=== PATIENT | female | born 1990 | race Caucasian/White ===

== ENCOUNTER 2018-03-29 11:36 | Emergency (ER) | payer MEDICAID, SELFPAY ==
[2018-03-29 11:38] VITALS: BP 112/65; PULSE 95; RESP 17; TEMP 37.6; O2SAT 100; BMI 32.8
[2018-03-29 13:21] LABS: Absolute Lymphocyte Count 1.68 X10^3/ul (0.83-4.51); Absolute Neutrophil Count 11.4 X10^3/uL (2.0-7.7); Basophil# 0.02 X10^3/uL; Basophil% 0.1 % (0-1); Eosinophil# 0.03 X10^3/uL; Eosinophils% 0.2 % (0-5); Hemoglobin 12.3 g/dl (12.0-15.0); Lymphocyte # 1.68 X10^3/ul (4.0); Lymphocyte % 11.6 % (19-41); Mean Corp Hgb Conc 32.4 g/gl (32-36); Mean Corpuscular Volume 92.7 fL (81-99); Mean Platelet Vol. 9.4 fl (6.2-12.0); Monocyte# 1.26 X10^3/uL; Monocyte% 8.7 % (0-10); Neutrophil # 11.43 X10^3/uL (2.7-7.7); Neutrophil % 79.3 % (47-70); Platelet Count 314 K/mm3 (150-450); RBC Distribution Width CV 12.1 % (11.6-14.6); RBC Distribution Width SD 41.2 fl (35.1-43.9); White Blood Count 14.4 K/mm3 (4.4-11.0)
[2018-03-29 13:22] LABS: POSITIVE COUNT NO; POSITIVE DIFFERENTIAL NO; POSITIVE MORPHOLOGY NO
[2018-03-29] MEDS: Ketorolac 30 MG/ML Syringe IV (13:31)
[2018-03-29] MEDS: 0.9% Normal Saline 1,000 ML 1000 ML IV (13:31)
[2018-03-29 13:36] LABS: ALB/GLOB Ratio 0.7 RATIO (0.9-2.4); AST(SGOT) 21 U/L (15-37); Alanine Aminotransfer ALT/SGPT 36 U/L (13-56); Albumin, Serum 3.2 g/dL (3.2-5.0); Alkaline Phosphatase 81 U/L (45-117); Anion Gap 7 (5-15); BUN 10 mg/dL (7-18); BUN/Creat Ratio 12.4 RATIO (10-20); Calcium,Total 8.7 mg/dL (8.5-10.1); Chloride 101 mmol/L (98-107); EST Glomerular Filtration Rate 89 mL/min (>60); Est Glom Filt Rate - Afr Amer 108 mL/min (>60); Estimated Creatinine Clearance 103.73 ml/min; Globulin 4.6 g/dL (2.2-4.2); Glucose 100 mg/dL (74-106); Potassium 4.3 mmol/L (3.5-5.1); Protein, Total 7.8 g/dL (6.4-8.2); Sodium Level 135 mmol/L (136-145)
[2018-03-29 13:45] LABS: Internal QC Validated? YES +Cl - CLEAR BKGD
[2018-03-29 13:46] LABS: Monotest Negative (Negative); Record Kit Lot#, Mono 13171517
--- NOTE | 2018-03-29 13:55 | RAD_ITS ---
STUDY: X-RAY CHEST REASON FOR EXAM: Female, 28 years old. Headaches. Nausea and chills. TECHNIQUE: PA and lateral views of the chest. COMPARISON: None. FINDINGS: The lungs are clear and expanded. There is no demonstrated pleural abnormality. Normal size heart. Normal mediastinum and praveen. Normal visualized pulmonary arteries. Normal visualized aortic arch and descending thoracic aorta. Normal visualized thoracic spine. Normal visualized ribs, clavicles, and shoulders. There is no demonstrated abnormality of the visualized soft tissue structures of the upper abdomen. RAD/Chest PA and Lateral IMPRESSION: Normal x-ray examination of the chest. Electronically Signed: Quirino Urbina MD at 14:28 EST Tel [phone], Service support ,
[2018-03-29 15:19] LABS: Color, Urine Yellow (Yellow); Glucose, Dipstick Normal (Normal); Ketone-Dipstick Negative (Negative); Leukocyte Esterase-Dipstick 500 /ul (Negative); Nitrite-Dipstick Positive (Negative); Occult Blood-Urine 50 /ul (Negative); Protein-Dipstick 30 mg/dl (Negative); Urine Bilirubin Dipstick Negative (Negative); Urine Clarity Cloudy (Clear); Urine Urobilinogen 1 mg/dl (Normal); Urine pH 6.5 (5.0 - 8.0)
[2018-03-29 15:42] LABS: Red Blood Cells-Urine 0-5 SEEN /hpf (0-5); Squamous Epithelial Cells - UA 0-5 SEEN /hpf (5-10); White Blood Cells >100 SEEN /hpf (0-5)
[2018-03-29 15:43] LABS: Amorphous Sediment 2+; Bacteria 4+ /hpf (None Seen); Mucous, Urine 1+ /hpf (<or=2+)
[2018-03-29 15:53] VITALS: BP 132/55; PULSE 80; RESP 16; TEMP 37.1; O2SAT 98
--- NOTE | 2018-03-29 16:06 | ED.VISSUMM ---
- ER Visit Summary Date of Service: 03/29/18 Chief Complaint: I am sick History of Present Illness: The patient is a 28 F who states for the past 1-1/2-1-week she has been feeling ill. States he began with a cough and runny nose as well as a sore throat. She then began to have a headache generalized fatigue and decreased p.o. She has had some vomiting no diarrhea. She notes generalized myalgias. She notes dysuria hematuria and urinary frequency. She notes chills but no definitive fever. She notes her headache is by temporal that is worse with a cough. She notes some light sensitivity. She notes a history of endometriosis that led to hysterectomy. She also notes a history of asthma. Initial history though the patient told me she had no significant medical problems and takes no medicines. Physical Examination: Temperature 99.7 blood pressure 112/65 heart rate of 95 respirations are 17 pulse ox 100% room air Gen: Well-nourished well-developed Head: Normocephalic atraumatic Eyes: Perrl EOMI no papilledema ENT: TMs clear no rhinorrhea moist mucous membranes Neck: Supple no lymphadenopathy no JVD nontender no meningitic signs CVS: Regular rate rhythm no murmurs normal S1-S2 Respiratory: No distress mild expiratory wheeze that improves with cough chest nontender Abdomen: Soft nontender nondistended normal bowel sounds no masses Back: Left CVA tenderness Extremity: Nontender no edema Skin: Normal color no rash Neuro: alert orientated ?3 CN II-XII intact normal strength sensation reflexes gait cerebellar Psych: Normal affect normal mood Test Results: White count elevated 14.4. Urinalysis is grossly contaminated with greater than 100 white cells 4+ bacteria 0-5 epithelial cells positive nitrate and leukocyte esterase. Monospot was negative. Urine culture was sent. Chest x-ray shows no obvious infiltrate. Emergency Department Course and Treatment: Patient received Toradol and IV fluids. Patient had no vomiting here. I believe the patient most likely had a URI and somewhere along the line developed UTI and now has pyelonephritis. I am going to write her for Cipro as well as Phenergan and albuterol MDI. She is instructed on hydrating. Also write for a few [place]. She is to follow-up with primary care return if worsening or concerns. Patient is comfortable with this plan. Impression: 1. Acute pyelonephritis 2. Viral respiratory illness This note was generated with [employer] dictation software. It may contain incorrect words, spelling, and punctuation that were not noted in review of the chart prior to signing ED Disposition - Plan for ED Patient: Disposition: Home or Assisted Living Chief Complaint: General Illness Prescriptions: Albuterol Inhaler [Ventolin Hfa] 2 puff INHALATION Q4H PRN PRN #1 inhaler PRN Reason: Wheezing Hydrocodone Bitart/Apap 5-325 [[place] 5MG-325MG] 1 tab PO Q6H PRN PRN 3 Days #10 tab PRN Reason: Pain proMETHazine tablet [Phenergan] 25 mg PO Q6H PRN PRN #10 tab PRN Reason: Nausea Ciprofloxacin [Cipro] 500 mg PO BID #20 tab Referrals: Elana Keenan MD [STAFF PHYSICIAN] - 3-5 Days if not improving
[2018-03-29 16:38] VITALS: PULSE 79; RESP 14; O2SAT 98
== END 2018-03-29 16:38 | disposition home or self-care (01) ==
PROVIDERS: Emergency Provider Emergency Medicine
DX: N10 Acute pyelonephritis (principal); B34.9 Viral infection, unspecified; J45.909 Unspecified asthma, uncomplicated; Z90.710 Acquired absence of both cervix and uterus; Z72.0 Tobacco use
CPT/HCPCS: 71046; 80053; 81001; 85025; 86308; 87086; 87088; 87186; 99283; J7030; A4216

== ENCOUNTER 2020-01-18 00:10 | Inpatient (IN) | payer MEDICAID, SELFPAY ==
[2020-01-18] VITALS (11 sets, daily range): BP systolic 98–122; BP diastolic 55–88; PULSE 63–97; RESP 16–18; TEMP 36.6–36.9; O2SAT 94–100; BMI 29.9; BMI 29.3; BMI 29.4
[2020-01-18 01:12] LABS: Internal QC Validated? YES +Cl - CLEAR BKGD; Pregnancy, Serum, hCG Quali. NEGATIVE Negative
[2020-01-18 01:21] LABS: Amphetamine Urine VISTA POSITIVE (<1000 ng/mL); Barbiturate Urine VISTA NEGATIVE (< 200 ng/mL); Benzodiazepine Urine VISTA NEGATIVE (< 200 ng/mL); Cocaine Urine VISTA NEGATIVE (< 300 ng/mL); Ecstacy Urine VISTA NEGATIVE (< 500 ng/mL); Methadone Urine VISTA NEGATIVE (< 300 ng/mL); PCP Urine VISTA NEGATIVE (< 25 ng/mL); THC Urine VISTA NEGATIVE (< 50 ng/mL); Vista UDS pH Range 5
[2020-01-18 01:21] LABS: ALB/GLOB Ratio 0.6 RATIO (0.9-2.4); AST(SGOT) 18 U/L (15-37); Alanine Aminotransfer ALT/SGPT 43 U/L (13-56); Albumin, Serum 2.9 g/dL (3.2-5.0); Alkaline Phosphatase 96 U/L (45-117); Anion Gap 4 (5-15); BUN 8 mg/dL (7-18); BUN/Creat Ratio 11.2 RATIO (10-20); Calcium,Total 8.5 mg/dL (8.5-10.1); Chloride 106 mmol/L (98-107); Creatinine, Serum 0.71 mg/dL (0.55-1.02); EST Glomerular Filtration Rate 101 mL/min (>60); Est Glom Filt Rate - Afr Amer 122 mL/min (>60); Estimated Creatinine Clearance 110.62 ml/min; Globulin 4.9 g/dL (2.2-4.2); Glucose 89 mg/dL (74-106); Protein, Total 7.8 g/dL (6.4-8.2); Sodium Level 136 mmol/L (136-145)
--- NOTE | 2020-01-18 01:36 | ED.VISSUMM ---
- ER Visit Summary Date of Service: 01/18/20 Chief Complaint: Requesting detox History of Present Illness: The patient is a 30 F presenting requesting detox from heroin. She states she last used 2 hours ago. She last had detox 6 months ago. She states she has been using $20-$40 per day of heroin. She injects in her arms. She denies current symptoms. Denies alcohol use. Denies other drug use. Physical Examination: Vitals are stable. Patient is afebrile. Alert no acute distress. HEENT exam is unremarkable. Neck is supple. Lungs are clear and equal bilaterally. Heart is regular rate and rhythm. Abdomen is soft nontender nondistended. Extremities are unremarkable. Skin is warm and dry. No focal neurologic deficit. Remainder of exam is unremarkable. Emergency Department Course and Treatment: Chemistry panel unremarkable. Tox positive for amphetamine, alcohol negative. hCG negative. Discussed with the hospitalist for admission. Disposition: Admission Impression: Heroin dependence This note was generated with [email or web address] dictation software. It may contain incorrect words, spelling, and punctuation that were not noted in review of the chart prior to signing ED Disposition - Plan for ED Patient: Referrals: Deisy Montilla NP, [facility] [Primary Care Provider] -
--- NOTE | 2020-01-18 01:39 | HP.PCM_ITS ---
Problem List (1) Opiate dependence Status: Acute (2) Desire for detoxification Status: Acute History of Present Illness Date of Admission: 01/18/20 Chief Complaint: Desire for detoxification The patient is a 30 year old F with a significant history of asthma; anxiety disorder; and methamphetamine abuse and heroin abuse who presented to the ED for detoxification from illicit drugs. Actively patient uses heroin. She uses about a quarter of a gram per day. It cost about $40 per day. She has been using drugs for the last 4 years. However 5 months ago she went to [facility] detoxification at [facility] where she was cleaned. However she has since resumed drug use. The last time she used heroin was 2 hours before presentation. She shoots heroin in both arms. She reported that the last time she used methamphetamine was about 5 months ago. She used to smoke methamphetamine. At emergency department urine drug screen was positive for methamphetamine. When patient was comfortably with the findings she stated that the same person who she (patient) buys heroin from also sells methamphetamine; and the heroin may be contaminated with methamphetamine. Patient came to the emergency department with his boyfriend who is also here for detoxification. Past Medical History Medical History: Medical History (Last Updated 01/18/20 @ 02:[address] Jordy Garcia MD) Opiate dependence F11.20 Allergies sulfamethoxazole [From Bactrim] Adverse Reaction (Verified 01/18/20 00:10) Vomiting trimethoprim [From Bactrim] Adverse Reaction (Verified 01/18/20 00:10) Vomiting Home Medications: Ambulatory Orders Medication Instructions Recorded NK 01/18/20 Surgical History: no surgical history Smoking Status: Current every day smoker Tobacco Use: Cigarettes Drugs: Heroin - *Family History Maternal History Items: Cancer Paternal History Items: - - Denies knowledge of paternal medical history Review of Systems Constitutional: Denies: Chills, Fever, Weight Change HEENT: Denies: Head Aches, Sinus Congestion, Sinus Drainage Cardiovascular: Denies: Chest Pain, Palpitations Respiratory: Denies: Cough, Shortness of breath at rest, Sputum production Gastrointestinal: Denies: Abdominal Pain, Nausea, Vomiting Genitourinary: Denies: Dysuria Musculoskeletal: Denies: Joint Pain, Joint Tenderness Skin: Denies: Rash, Wounds Neurological: Denies: Numbness, Tingling, Focal weakness Psychiatric: Denies: Anxiety, Depression, Homicidal Ideations, Suicidal Ideations Hematologic/ Lymphatic: Denies: Easy Bruising, Easy Bleeding VTE Information - Inpt Only VTE Present on Admission: No VTE Mechan Device Prophylaxis: None VTE Pharm Prophylaxis ordered?: No Reason prophylaxis not ordered:: Treatment Not Indicated - Low risk; encouraged to ambulate. Patient Problems: Active and Suspected Problems (Last Updated 01/18/20 @ 02:[address] Jordy Garcia MD) Opiate dependence (Acute) Desire for detoxification (Acute) - Physical Exam Vitals/I&O's: Vital Signs Temp Pulse Resp BP Pulse Ox 98.0 F 86 18 105/88 H 99 01/18/20 00:11 01/18/20 00:11 01/18/20 00:11 01/18/20 00:11 01/18/20 00:11 Oxygen Delivery Method Room Air Weight: 86.9 kg Body Mass Index (BMI) 29.9 General: Alert, Oriented x3, Cooperative HEENT: Atraumatic, PERRLA, EOMI, Normocephalic Neck: Supple, No JVD, Negative Carotid Bruits Lungs: No rhonchi, No rales, Wheezes Cardiovascular: Regular rate, Regular Rhythm, Normal S1, Normal S2, No murmurs Abdomen: Bowel Sounds Present, Soft, Non Tender Extremities: No edema, Capillary Refill Less than 3 Seconds Skin: No rashes, No breakdown, - - Needle tract treviño on bilateral arms Musculoskeletal: No Tenderness to Palpation of Joints or Extremities Neurological: Cranial nerves II-XII grossly intact Psych/Mental Status: Normal Affect, Appropriate Laboratory Results 01/18/20 00:30: Urine Opiates Screen NEGATIVE, Urine Methadone Screen NEGATIVE, Ur Barbiturates Screen NEGATIVE, Ur Phencyclidine Scrn NEGATIVE, Ur Amphetamines Screen POSITIVE H, U Methamphetamin-MDMA NEGATIVE, U Benzodiazepines Scrn NEGATIVE, Urine Cocaine Screen NEGATIVE, U Cannabinoids Screen NEGATIVE, Ur Drug Screen Comment 01/18/20 00:55: Sodium 136, Potassium 4.0, Chloride 106, Carbon Dioxide 26.0, Anion Gap 4 L, BUN 8, Creatinine 0.71, Estim Creat Clear Calc 110.62, Est GFR (MDRD) Af Amer 122, Est GFR (MDRD) Non-Af 101, BUN/Creatinine Ratio 11.2, Glucose 89, Calcium 8.5, Total Bilirubin 0.30, AST 18, ALT 43, Alkaline Phosphatase 96, Total Protein 7.8, Albumin 2.9 L, Globulin 4.9 H, Albumin/Globulin Ratio 0.6 L 01/18/20 00:55: Ethyl Alcohol 5.0 01/18/20 00:55: Serum , Qual NEGATIVE Assessment/Plan All Active Problems (Last Updated 01/18/20 @ 02:[address] Jordy Garcia MD) Opiate dependence (Acute) Desire for detoxification (Acute) The patient is a 30 year old F with a significant history of asthma; anxiety disorder; and methamphetamine abuse and heroin abuse who presented for de toxification. Opioid dependence with desire for detoxification We will start patient on Subutex taper and other adjunctive medications Tobacco abuse Counseled Nicotine patch prescribed Asthma With mild wheezes Stable PRN albuterol ordered. DVT prophylaxis Low risk Encourage ambulate. Inpatient E&M: 50440 Init Hosp L2
[2020-01-18] MEDS: hydrOXYzine PAM 25 MG Capsule 50 MG PO ×2 (04:58→21:43)
[2020-01-18] MEDS: Methocarbamol 750 MG Tablet 1500 MG PO ×2 (04:59→18:03)
[2020-01-18] MEDS: Ondansetron 8 MG Tablet PO ×2 (09:17→19:48)
--- NOTE | 2020-01-18 12:20 | ADDICTION ---
This keno writer/runner met with patient in her room to complete ASAM, MSE and DUDIT assessments and to process d/c plan. Patient was alert and oriented x4 and participated appropriately. She reported that she is currently engaged with [facility] for AoD treatment and plans to continue with that agency. This keno writer/runner attempted to contact [facility] to schedule but was unsuccessful. This keno writer/runner is waiting for a return call to assist patient with scheduling. She was also provided with the contact information to set up appointment upon d/c from [facility]. Patient refused residential recommendation. Patient refused transportation coordination. This keno writer/runner will fax completed assessments to [facility]. She appears appropraite for the 4.0 LOC aeb: ASAM Dimension1: severe
--- NOTE | 2020-01-18 14:52 | PCM.PN.BLA ---
Progress Note Patient was seen and examined. No new complaints. Vitals reviewed -stable Admitting labs unremarkable except for urine tox positive for amphetamines. We will continue on the buprenorphine withdrawal protocol STROKE Vital Signs/Narrative: Vital Signs Temp Pulse Resp BP Pulse Ox 01/18/20 11:07 98.2 F 72 18 102/55 L 97
[2020-01-18] MEDS: Buprenorphine HCl 2 MG TAB.SUBL SL (18:03)
[2020-01-18] MEDS: Acetaminophen 325 MG Tablet 650 MG PO (21:43)
[2020-01-18] MEDS: cloNIDine HCl 0.1 MG Tablet PO (21:52)
[2020-01-18] MEDS: traZODone 100 MG Tablet PO (21:52)
[2020-01-18] MEDS: Dicyclomine 10 MG Capsule 20 MG PO (22:03)
[2020-01-19 02:16] VITALS: BP 109/62; PULSE 65; RESP 16; TEMP 36.5; O2SAT 99
[2020-01-19] MEDS: Buprenorphine HCl 2 MG TAB.SUBL SL ×3 (02:22→19:08)
[2020-01-19] MEDS: Gabapentin 300 MG Capsule PO ×2 (02:29→14:57)
[2020-01-19] MEDS: Methocarbamol 750 MG Tablet 1500 MG PO ×2 (06:45→14:57)
[2020-01-19 09:00] VITALS: BP 98/56; PULSE 65; RESP 18; TEMP 36.6; O2SAT 97
[2020-01-19] MEDS: hydrOXYzine PAM 25 MG Capsule 50 MG PO (11:17)
[2020-01-19] MEDS: Dicyclomine 10 MG Capsule 20 MG PO (11:17)
[2020-01-19] MEDS: Ondansetron 8 MG Tablet PO (11:17)
--- NOTE | 2020-01-19 12:43 | PCM.PN.HOSP ---
Patient Problems: Active and Suspected Problems (Last Updated 01/18/20 @ 02:[address] Jordy Garcia MD) Opiate dependence (Acute) Desire for detoxification (Acute) Reason for Visit: Follow-up on acute opioid withdrawal Subjective: Patient was seen and examined, No acute events. She feels improved. Denies fever or chills. Objective: Physical exam: General: Alert, Oriented x3, Cooperative HEENT: Atraumatic, PERRLA, EOMI, Normocephalic Neck: Supple, No JVD, Negative Carotid Bruits Lungs: No rhonchi, No rales, Wheezes Cardiovascular: Regular rate, Regular Rhythm, Normal S1, Normal S2, No murmurs Abdomen: Bowel Sounds Present, Soft, Non Tender Extremities: No edema, Capillary Refill Less than 3 Seconds Skin: No rashes, No breakdown, - - Needle tract treviño on bilateral arms Musculoskeletal: No Tenderness to Palpation of Joints or Extremities Neurological: Cranial nerves II-XII grossly intact Psych/Mental Status: Normal Affect, Appropriate Vitals/I&O's: Vital Signs Temp Pulse Resp BP Pulse Ox 97.9 F 65 18 98/56 L 97 01/19/20 09:00 01/19/20 09:00 01/19/20 09:00 01/19/20 09:00 01/19/20 09:00 Oxygen Delivery Method Room Air Weight: 85.1 kg Body Mass Index (BMI) 29.3 Intake and Output for Last 24 Hours 01/17/20 01/18/20 01/19/20 23:59 23:59 23:59 Intake Total 1480 / 1680 200 / 200 Balance 1480 / 1680 200 / 200 Current Medications Acetaminophen (Tylenol) 650 mg PO Q6H PRN PRN PRN Reason: Pain Score 1-10/Temp > 100.7 F Last Admin: 01/18/20 21:43 Dose: 650 mg Documented by: Albuterol Sulfate (Ventolin Aerosols) 2.5 mg INHALATION Q2H PRN PRN PRN Reason: Shortness of breath/wheezing Buprenorphine HCl (Buprenorphine Hcl) 4 mg SL Q8H WILL; Taper Stop: 01/21/20 17:59 Last Admin: 01/19/20 11:01 Dose: 4 mg Documented by: Clonidine (Catapres) 0.1 mg PO Q8H PRN PRN PRN Reason: RESTLESSNESS Last Admin: 01/18/20 21:52 Dose: 0.1 mg Documented by: Dicyclomine HCl (Bentyl) 20 mg PO Q6H PRN PRN PRN Reason: Abdominal Discomfort Last Admin: 01/19/20 11:17 Dose: 20 mg Documented by: Gabapentin (Neurontin) 300 mg PO Q8H PRN PRN PRN Reason: moderate to severe anxiety Last Admin: 01/19/20 02:29 Dose: 300 mg Documented by: Hydroxyzine Pamoate (Vistaril Pamoate Capsule) 50 mg PO Q6H PRN PRN PRN Reason: mild anxiety Last Admin: 01/19/20 11:17 Dose: 50 mg Documented by: Sodium Chloride () 250 mls @ 15 mls/hr IV .[id number] PRN PRN Reason: Saline Flush Sodium Chloride () 250 mls @ 15 mls/hr IV .[id number] PRN PRN Reason: Additional IVPB Infusion Loperamide HCl (Imodium) 2 mg PO Q4H PRN PRN PRN Reason: LOOSE STOOLS Methocarbamol (Methocarbamol) 1,500 mg PO Q6H PRN PRN PRN Reason: MUSCLE SPASM Last Admin: 01/19/20 06:45 Dose: 1,500 mg Documented by: Nicotine (Nicoderm Cq (Pbkc)) 21 mg TRANSDERM. DAILY WILL Last Admin: 01/19/20 11:01 Dose: 21 mg Documented by: Ondansetron HCl (Zofran) 8 mg PO Q8H PRN PRN PRN Reason: NAUSEA Last Admin: 01/19/20 11:17 Dose: 8 mg Documented by: Sodium Chloride () 10 - 40 ml IV UD PRN PRN Reason: SALINE FLUSH Trazodone HCl (Desyrel) 100 mg PO QHS PRN PRN PRN Reason: INSOMNIA Last Admin: 01/18/20 21:52 Dose: 100 mg Documented by: STROKE Vital Signs/Narrative: Vital Signs Temp Pulse Resp BP Pulse Ox 01/19/20 09:00 97.9 F 65 18 98/56 L 97 Medical Necessity - Tobacco Use Smoking Status: Current every day smoker Tobacco Use: Cigarettes Assessment/Plan All Active Problems (Last Updated 01/18/20 @ 02:[address] Jordy Garcia MD) Opiate dependence (Acute) Desire for detoxification (Acute) 1. Acute opioid withdrawal, slowly improving Continue on buprenorphrine withdrawal protocol 2. Nicotine dependence, on replacement 3. Asthma, stable, no signs of acute exacerbation 4. DVT PPx- low risk, encourage early ambulation Inpatient E&M: 32438 Subs Hosp L2
[2020-01-19 15:00] VITALS: BP 101/56; PULSE 73; RESP 18; TEMP 36.7; O2SAT 98
[2020-01-19] MEDS: traZODone 100 MG Tablet PO (20:03)
[2020-01-19 20:05] VITALS: BP 94/46; PULSE 60; RESP 16; TEMP 36.4; O2SAT 98
[2020-01-20] MEDS: Buprenorphine HCl 2 MG TAB.SUBL SL ×3 (02:17→17:35)
[2020-01-20 02:20] VITALS: BP 92/51; PULSE 59; RESP 16; TEMP 37; O2SAT 96
[2020-01-20] MEDS: hydrOXYzine PAM 25 MG Capsule 50 MG PO ×3 (02:24→17:35)
[2020-01-20 02:36] LABS: Mucous, Urine 0 SEEN /hpf (<or=2+)
[2020-01-20 02:38] LABS: Color, Urine Yellow (Yellow); Glucose, Dipstick Normal (Normal); Ketone-Dipstick Negative (Negative); Leukocyte Esterase-Dipstick 500 /ul (Negative); Nitrite-Dipstick Positive (Negative); Occult Blood-Urine 10 /ul (Negative); Protein-Dipstick Negative (Negative); Specific Gravity, Urine 1.015 (1.002-1.030); Urine Bilirubin Dipstick 1 mg/dL (Negative); Urine Clarity Sl. Cloudy (Clear); Urine Urobilinogen 1 mg/dl (Normal)
[2020-01-20 02:43] LABS: Bacteria 2+ /hpf (None Seen); Red Blood Cells-Urine 0-5 SEEN /hpf (0-5); Squamous Epithelial Cells - UA 0 SEEN /hpf (5-10); White Blood Cells 10-25 SEEN /hpf (0-5)
--- NOTE | 2020-01-20 02:53 | PCM.PN.BLA ---
Progress Note Patient abnormal urinary symptoms. Urinalysis with reflex urine culture ordered. Urinalysis returned with positive leukocytes; positive nitrates and with bacteria. Will start patient on ciprofloxacin p.o. STROKE Vital Signs/Narrative: Vital Signs Temp Pulse Resp BP Pulse Ox 01/20/20 02:20 98.6 F 59 L 16 92/51 L 96
[2020-01-20] MEDS: Ciprofloxacin 500 MG Tablet PO ×3 (03:10→21:26)
[2020-01-20 10:00] VITALS: BP 112/55; PULSE 62; RESP 16; TEMP 36.7; O2SAT 98
[2020-01-20] MEDS: cloNIDine HCl 0.1 MG Tablet PO (10:51)
--- NOTE | 2020-01-20 11:17 | PN_ITS ---
Patient Problems: Active and Suspected Problems (Last Updated 01/18/20 @ 02:[address] Jordy Garcia MD) Opiate dependence (Acute) Desire for detoxification (Acute) Reason for Visit: Follow-up on acute opioid withdrawal Subjective: Patient was seen and examined. Patient feels improved. Started on Cipro for acute UTI. Denies fever or chills. Objective: Physical exam: General: Alert, Oriented x3, Cooperative HEENT: Atraumatic, PERRLA, EOMI, Normocephalic Neck: Supple, No JVD, Negative Carotid Bruits Lungs: No rhonchi, No rales, Wheezes Cardiovascular: Regular rate, Regular Rhythm, Normal S1, Normal S2, No murmurs Abdomen: Bowel Sounds Present, Soft, Non Tender Extremities: No edema, Capillary Refill Less than 3 Seconds Skin: No rashes, No breakdown, - - Needle tract treviño on bilateral arms Musculoskeletal: No Tenderness to Palpation of Joints or Extremities Neurological: Cranial nerves II-XII grossly intact Psych/Mental Status: Normal Affect, Appropriate Vitals/I&O's: Vital Signs Temp Pulse Resp BP Pulse Ox 98.6 F 59 L 16 92/51 L 96 01/20/20 02:20 01/20/20 02:20 01/20/20 02:20 01/20/20 02:20 01/20/20 02:20 Oxygen Delivery Method Room Air Weight: 85.1 kg Body Mass Index (BMI) 29.3 Intake and Output for Last 24 Hours 01/18/20 01/19/20 01/20/20 23:59 23:59 23:59 Intake Total 1480 / 1680 200 / 200 Balance 1480 / 1680 200 / 200 Laboratory Results 01/20/20 02:20: Urine Color Yellow, Urine Clarity Sl. Cloudy, Urine pH 6.0, Ur Specific [place] 1.015, Urine Protein Negative, Urine Glucose (UA) Normal, Urine Ketones Negative, Urine Occult Blood 10 H, Urine Nitrite Positive H, Urine Bilirubin 1 H, Urine Urobilinogen 1 H, Ur Leukocyte Esterase 500 H, Urine RBC 0- 5 SEEN, Urine WBC 10-25 SEEN, Ur Squamous Epith Cells 0 SEEN, Urine Bacteria 2+, Urine Mucus 0 SEEN Current Medications Acetaminophen (Tylenol) 650 mg PO Q6H PRN PRN PRN Reason: Pain Score 1-10/Temp > 100.7 F Last Admin: 01/18/20 21:43 Dose: 650 mg Documented by: Albuterol Sulfate (Ventolin Aerosols) 2.5 mg INHALATION Q2H PRN PRN PRN Reason: Shortness of breath/wheezing Buprenorphine HCl (Buprenorphine Hcl) 2 mg SL Q8H [facility]; Taper Stop: 01/21/20 17:59 Last Admin: 01/20/20 10:45 Dose: 2 mg Documented by: Ciprofloxacin HCl (Cipro) 500 mg PO BID [facility] Last Admin: 01/20/20 10:51 Dose: 500 mg Documented by: Clonidine (Catapres) 0.1 mg PO Q8H PRN PRN PRN Reason: RESTLESSNESS Last Admin: 01/20/20 10:51 Dose: 0.1 mg Documented by: Dicyclomine HCl (Bentyl) 20 mg PO Q6H PRN PRN PRN Reason: Abdominal Discomfort Last Admin: 01/19/20 11:17 Dose: 20 mg Documented by: Gabapentin (Neurontin) 300 mg PO Q8H PRN PRN PRN Reason: moderate to severe anxiety Last Admin: 01/19/20 14:57 Dose: 300 mg Documented by: Hydroxyzine Pamoate (Vistaril Pamoate Capsule) 50 mg PO Q6H PRN PRN PRN Reason: mild anxiety Last Admin: 01/20/20 10:51 Dose: 50 mg Documented by: Sodium Chloride () 250 mls @ 15 mls/hr IV .[id number] PRN PRN Reason: Saline Flush Sodium Chloride () 250 mls @ 15 mls/hr IV .[id number] PRN PRN Reason: Additional IVPB Infusion Loperamide HCl (Imodium) 2 mg PO Q4H PRN PRN PRN Reason: LOOSE STOOLS Methocarbamol (Methocarbamol) 1,500 mg PO Q6H PRN PRN PRN Reason: MUSCLE SPASM Last Admin: 01/19/20 14:57 Dose: 1,500 mg Documented by: Nicotine (Nicoderm Cq (Pbkc)) 21 mg TRANSDERM. DAILY WILL Last Admin: 01/20/20 10:45 Dose: 21 mg Documented by: Ondansetron HCl (Zofran) 8 mg PO Q8H PRN PRN PRN Reason: NAUSEA Last Admin: 01/19/20 11:17 Dose: 8 mg Documented by: Sodium Chloride () 10 - 40 ml IV UD PRN PRN Reason: SALINE FLUSH Trazodone HCl (Desyrel) 100 mg PO QHS PRN PRN PRN Reason: INSOMNIA Last Admin: 01/19/20 20:03 Dose: 100 mg Documented by: Medical Necessity - Tobacco Use Smoking Status: Current every day smoker Tobacco Use: Cigarettes Assessment/Plan All Active Problems (Last Updated 01/18/20 @ 02:[address] Jordy Garcia MD) Opiate dependence (Acute) Desire for detoxification (Acute) 1. Acute opioid withdrawal, slowly improving Continue on buprenorphrine withdrawal protocol 2. Acute symptomatic UTI, on po cipro Urine cultures are pending 3. Nicotine dependence, on replacement 4. Asthma, stable, no signs of acute exacerbation 5. DVT PPx- low risk, encourage early ambulation Inpatient E&M: 42443 Subs Hosp L2
[2020-01-20 16:00] VITALS: BP 108/55; PULSE 60; RESP 16; TEMP 36.6; O2SAT 98
[2020-01-20] MEDS: Dicyclomine 10 MG Capsule 20 MG PO (17:36)
[2020-01-20] MEDS: traZODone 100 MG Tablet PO (21:26)
[2020-01-20 21:29] VITALS: BP 116/51; PULSE 67; RESP 16; TEMP 36.4; O2SAT 99
[2020-01-21] MEDS: Buprenorphine HCl 2 MG TAB.SUBL SL (06:03)
[2020-01-21 06:04] VITALS: BP 109/60; PULSE 67; RESP 16; TEMP 36.2; O2SAT 95
[2020-01-21] MEDS: hydrOXYzine PAM 25 MG Capsule 50 MG PO (06:08)
--- NOTE | 2020-01-21 09:09 | PCM.DC ---
- Discharge Diagnoses Current Active Problems: Current Active and Chronic Problems (Last Updated 01/18/20 @ 02:[address] Jordy Garcia MD) Opiate dependence (Acute) Desire for detoxification (Acute) Reason(s) for Visit for Discharge Instructions: Acute opioid withdrawal You will use the following diet at home:: Regular Your food should be the consistency of: Regular Your liquids should be the consistency of: Regular/Thin Discharge Activity: Return to Normal Activity Additional Instructions: You are strongly advised to continue to avoid use of opioids. You are also advised to stop smoking. Follow-up with your outpatient drug rehab program as scheduled. Allergies/Adverse Reactions: Allergies sulfamethoxazole [From Bactrim] Adverse Reaction (Verified 01/18/20 00:10) Vomiting trimethoprim [From Bactrim] Adverse Reaction (Verified 01/18/20 00:10) Vomiting Medications to take at Discharge Ciprofloxacin [Cipro] 500 mg PO BID 5 Days #10 tab 01/21/20 Nicotine [Nicoderm Cq] 21 mg TRANSDERM. DAILY 30 Days #30 patch 01/21/20 The following prescriptions were given: Ciprofloxacin [Cipro] 500 mg PO BID 5 Days #10 tab Transmission Status: Pending to [facility] Nicotine [Nicoderm Cq] 21 mg TRANSDERM. DAILY 30 Days #30 patch Transmission Status: Pending to [facility] Primary Care Physician: Deisy Montilla NP, [facility] [employer] [facility] [Primary Care Provider] - Please follow up with your Primary Care Physician in: within 1-2 weeks Test Results: Test results from this visit will be discussed in further detail at your follow-up appointment, if applicable. Proposed Discharge Date: 01/21/20
--- NOTE | 2020-01-21 09:12 | PCM.DC.SUM ---
Discharge Date and Diagnosis - Problem List Patient Problems: Active and Suspected Problems (Last Updated 01/18/20 @ 02:[address] Jordy Garcia MD) Opiate dependence (Acute) Desire for detoxification (Acute) Date of Admission: 01/18/20 Date of Discharge: 01/21/20 - Primary Discharge Diagnosis Acute Problems: Active Problems (Last Updated 01/18/20 @ 02:[address] Jordy Garcia MD) Acute opioid withdrawal Acute UTI Hospital Course and Treatment Operations: None Procedures: None Summary of Care Provided: The patient is a 30 year old F with past medical history of anxiety disorder, polysubstance use, asthma who comes in for medical stabilization. Patient is a chronic heroin user. Uses about 1/4 gram of heroin a day. Her vitals in the ED were stable. Urine tox was positive for amphetamines. Admitted to the [facility] floor and managed on the buprenorphine withdrawal protocol. There were no acute events. She complained of burning sensation on day 2 of her stay. This was suggestive of UTI. She was started on oral Cipro. On the day of discharge, patient's urine cultures were pending. She was discharged on 5 more days of oral Cipro. She will follow-up with her primary care doctor for the results of her urine culture. Patient Problems: Active and Suspected Problems (Last Updated 01/18/20 @ 02:[address] Jordy Garcia MD) Opiate dependence (Acute) Desire for detoxification (Acute) Subjective: On the day of discharge, patient was seen and examined. Denied any new complaints. She admitted to slight burning sensation. Objective: Physical exam: General: Alert, Oriented x3, Cooperative HEENT: Atraumatic, PERRLA, EOMI, Normocephalic Neck: Supple, No JVD, Negative Carotid Bruits Lungs: No rhonchi, No rales, Wheezes Cardiovascular: Regular rate, Regular Rhythm, Normal S1, Normal S2, No murmurs Abdomen: Bowel Sounds Present, Soft, Non Tender Extremities: No edema, Capillary Refill Less than 3 Seconds Skin: No rashes, No breakdown, - - Needle tract treviño on bilateral arms Musculoskeletal: No Tenderness to Palpation of Joints or Extremities Neurological: Cranial nerves II-XII grossly intact Psych/Mental Status: Normal Affect, Appropriate - Physical Exam Vitals/I&O's: Vital Signs Temp Pulse Resp BP Pulse Ox 97.2 F L 67 16 109/60 95 01/21/20 06:04 01/21/20 06:04 01/21/20 06:04 01/21/20 06:04 01/21/20 06:04 Oxygen Delivery Method Room Air Weight: 85.1 kg Body Mass Index (BMI) 29.3 Intake and Output for Last 24 Hours 01/19/20 01/20/20 01/21/20 23:59 23:59 23:59 Intake Total 200 / 200 Balance 200 / 200 Current Medications Acetaminophen (Tylenol) 650 mg PO Q6H PRN PRN PRN Reason: Pain Score 1-10/Temp > 100.7 F Last Admin: 01/18/20 21:43 Dose: 650 mg Documented by: Albuterol Sulfate (Ventolin Aerosols) 2.5 mg INHALATION Q2H PRN PRN PRN Reason: Shortness of breath/wheezing Buprenorphine HCl (Buprenorphine Hcl) 2 mg SL Q12H WILL; Taper Stop: 01/21/20 17:59 Last Admin: 01/21/20 06:03 Dose: 2 mg Documented by: Ciprofloxacin HCl (Cipro) 500 mg PO BID WILL Last Admin: 01/20/20 21:26 Dose: 500 mg Documented by: Clonidine (Catapres) 0.1 mg PO Q8H PRN PRN PRN Reason: RESTLESSNESS Last Admin: 01/20/20 10:51 Dose: 0.1 mg Documented by: Dicyclomine HCl (Bentyl) 20 mg PO Q6H PRN PRN PRN Reason: Abdominal Discomfort Last Admin: 01/20/20 17:36 Dose: 20 mg Documented by: Gabapentin (Neurontin) 300 mg PO Q8H PRN PRN PRN Reason: moderate to severe anxiety Last Admin: 01/19/20 14:57 Dose: 300 mg Documented by: Hydroxyzine Pamoate (Vistaril Pamoate Capsule) 50 mg PO Q6H PRN PRN PRN Reason: mild anxiety Last Admin: 01/21/20 06:08 Dose: 50 mg Documented by: Sodium Chloride () 250 mls @ 15 mls/hr IV .[id number] PRN PRN Reason: Saline Flush Sodium Chloride () 250 mls @ 15 mls/hr IV .[id number] PRN PRN Reason: Additional IVPB Infusion Loperamide HCl (Imodium) 2 mg PO Q4H PRN PRN PRN Reason: LOOSE STOOLS Methocarbamol (Methocarbamol) 1,500 mg PO Q6H PRN PRN PRN Reason: MUSCLE SPASM Last Admin: 01/19/20 14:57 Dose: 1,500 mg Documented by: Nicotine (Nicoderm Cq (Pbkc)) 21 mg TRANSDERM. DAILY WILL Last Admin: 01/20/20 10:45 Dose: 21 mg Documented by: Ondansetron HCl (Zofran) 8 mg PO Q8H PRN PRN PRN Reason: NAUSEA Last Admin: 01/19/20 11:17 Dose: 8 mg Documented by: Sodium Chloride () 10 - 40 ml IV UD PRN PRN Reason: SALINE FLUSH Trazodone HCl (Desyrel) 100 mg PO QHS PRN PRN PRN Reason: INSOMNIA Last Admin: 01/20/20 21:26 Dose: 100 mg Documented by: Discharge Diet: No Restrictions Discharge Activity: Return to Normal Activity Home Medications: Medications to take at Discharge Ciprofloxacin [Cipro] 500 mg PO BID 5 Days #10 tab 01/21/20 Nicotine [Nicoderm Cq] 21 mg TRANSDERM. DAILY 30 Days #30 patch 01/21/20 Following Prescriptions Were Given to Patient: Ciprofloxacin [Cipro] 500 mg PO BID 5 Days #10 tab Transmission Status: Pending to [facility] Nicotine [Nicoderm Cq] 21 mg TRANSDERM. DAILY 30 Days #30 patch Transmission Status: Pending to [facility] Primary Care Physician: Deisy Montilla NP, [employer] SUPERVISOR-C [Primary Care Provider] - Please follow up with your Primary Care Physician in: within 1-2 weeks Disposition: Home Minutes spent on discharge:: 25 Patient Condition:: Stable Medical Necessity - Tobacco Use Smoking Status: Current every day smoker Tobacco Use: Cigarettes Meaningful Use Info Meaningful Use Diagnoses (Choose all that apply): None applicable Inpatient E&M: [id number] [facility]
[2020-01-21 09:38] VITALS: BP 86/54; PULSE 52; RESP 14; TEMP 37.1; O2SAT 95
[2020-01-21] MEDS: Ciprofloxacin 500 MG Tablet PO (09:40)
[2020-01-21] MEDS: Methocarbamol 750 MG Tablet 1500 MG PO (09:42)
[2020-01-21 10:15] VITALS: BP 105/70
== END 2020-01-21 10:34 | disposition home or self-care (01) | DRG 773 ==
LOC: ED 01:04 → MS3 01:59
PROVIDERS: Admitting Provider Hospitalist; Emergency Provider Emergency Medicine; PCP Nurse Practitioner Adult Health; Visit Provider Internal Medicine
DX: F11.23 Opioid dependence with withdrawal (principal); N39.0 Urinary tract infection, site not specified; J45.909 Unspecified asthma, uncomplicated; F15.90 Other stimulant use, unspecified, uncomplicated; F17.210 Nicotine dependence, cigarettes, uncomplicated
CPT/HCPCS: 80053; 80307; 80320; 81001; 84703; 87077; 87086; 87088; 87186; 99281; A4216; G0480

== ENCOUNTER 2021-02-09 12:14 | Emergency (ER) | payer MEDICAID, SELFPAY ==
[2021-02-09 12:15] VITALS: BP 119/65; PULSE 105; RESP 16; TEMP 35.9; O2SAT 98; BMI 32.1
== END 2021-02-09 13:30 ==
LOC: ED 13:45
PROVIDERS: PCP Nurse Practitioner Adult Health
DX: N93.9 Abnormal uterine and vaginal bleeding, unspecified (principal)

== ENCOUNTER 2021-06-04 09:51 | Day surgery (SDC) | payer MEDICAID, SELFPAY ==
--- NOTE | 2021-06-03 15:13 | HP.PCM_ITS ---
History and Physical Date of Admission: 06/04/21 Matilde Rojo 1990 ? ? REFERRING PHYSICIAN: Jovi Guzman MD ? CHIEF COMPLAINT: Consult (Port) ? HPI: The patient is a 31 year old female presents with need for placement of portacath. ? Patient is found to have locally advanced rectal cancer. ? She denies history of clavicular or rib fractures. ? She denies history of DVTs. She denies excessive bleeding problems. She denies placement of previous central lines. ? ? PAST MEDICAL HISTORY ? Anxiety ? ? Arthritis ? ? Asthma ? ? Cervical dysplasia ? ? Hepatitis B ? ? possibly positive from vaccination ? Hepatitis C carrier (HCC) ? ? pt was told this has resolved 05/05 ? Migraine headache ? ? Rectal cancer (HCC) 04/13/2021 ? PAST SURGICAL HISTORY ? HYSTERECTOMY ? 2017 ? PAST SURGICAL HISTORY OF ? 2016 ? Uterine ablation ? PAST SURGICAL HISTORY OF ? 2018 ? Jermyn teeth ? PAST SURGICAL HISTORY OF ? ? ? surgical repair for left leg fracture ? PAST SURGICAL HISTORY OF ? 02/25/2021 ? Colonoscopy and anorectal and vaginal exam under anesthesia ? ? Current Outpatient Medications ? mupirocin (BACTROBAN) 2 % ointment Apply to affected area three times daily. ? mupirocin (BACTROBAN) 2 % ointment Apply to affected area three times daily. ? phenazopyridine (PYRIDIUM) 100 mg tablet Take 1 tablet by mouth three time s daily as needed for pain (bladder irritation). ? gabapentin (NEURONTIN) 600 mg tablet Take 1 tablet by mouth twice daily for 90 days. ? morphine IR 15 mg tablet Take 1 tablet by mouth three times daily as needed for pain for up to 14 days. At least 4 hours between doses of immediate release morphine ? morphine SR (MS CONTIN, ORAMORPH SR) 15 mg 12 hr tablet Take 1 tablet by mouth twice daily for 14 days. Do not start before May 22, 2021. ? cephALEXin (KEFLEX) 500 mg capsule Take 1 capsule by mouth three times daily. ? capecitabine (XELODA) 150 mg tablet Take 1 tablet (150 mg) by mouth twice daily with one other capecitabine prescription. Take only Tuesday through Tuesday for 5 weeks concurrently with radiation. Take with food. ? capecitabine (XELODA) 500 mg tablet Take 3 tablets (1,500 mg) by mouth twice daily with one other capecitabine prescription. Take only Tuesday through Tuesday for 5 weeks concurrently with radiation. Take with food. ? metoclopramide HCl (REGLAN) 10 mg tablet Take 1 tablet by mouth every 6 hours as needed (nausea). ? naloxone 4 mg/actuation nasal spray (NARCAN) Use 1 spray in one nostril as needed for overdose. May repeat every 2 to 3 min in alternating nostrils until medical assistance is available ? acetaminophen (TYLENOL) 500 mg tablet Take 2 tablets by mouth every 8 hours. ? lactulose (DUPHALAC, CONSTULOSE) 10 gram/15 mL solution Take 30 mL by mouth three times daily. ? lidocaine (SALONPAS) 4 % patch Apply 1 Patch as directed once daily. ? polyethylene glycol 3350 (MIRALAX, GLYCOLAX) 17 gram packet Take 1 Packet by mouth twice daily. Dissolve dose in 4 - 8 ounces of liquid and take as directed. ? senna (SENOKOT) 8.6 mg tab Take 2 tablets by mouth twice daily. ? fluticasone-salmeterol (ADVAIR, WIXELA) 250-50 mcg/dose inhaler Inhale 1 Puff as instructed twice daily. ? albuterol (PROVENTIL) 2.5 mg /3 mL (0.083 %) nebulizer solution Use 3 mL via nebulizer every 6 hours as needed for wheezing/shortness of breath. ? multivitamin (DAILY MULTI-VITAMIN) tablet Take 1 tablet by mouth once daily. ? ? ALLERGIES: Sulfamethoxazole-Trimethoprim and Trimethoprim ? PERSONAL HISTORY: Social History Tobacco Use ? Smoking status: Current Every Day Smoker ? ? Packs/day: 0.25 ? Smokeless tobacco: Never Used Vaping Use ? Vaping Use: Never used Substance Use Topics ? Alcohol use: Never ? Drug use: Not Currently ? ? Types: Heroin, Crystal Meth, Cocaine ? ? Comment: february 22 appx ? FAMILY HISTORY ? Migraines Mother ? ? Alcohol/Drug Father ? ? Arthritis Father ? ? Breast Cancer Maternal Grandmother 55 ? Cancer Paternal Grandfather ? ? Cancer Paternal Uncle ? ? kidney ? Ovarian cancer No Family History ? ? Uterine Cancer No Family History ? ? The review of systems data was entered by the nurse and reviewed by me ? Nursing Notes: Aimee Cortez 06/01/2021 9:58 AM Signed REVIEW OF SYSTEMS: General: The patient NOTES fatigue, denies weight loss, denies weight gain, denies feeling hot, and NOTES feelings of cold. Eyes: The patient denies glaucoma, denies eye injury/surgery, wears glasses or contacts. Ear/Nose/Throat: The patient denies allergies, denies hayfever, denies ear infections, and denies bloody noses. Cardiovascular: The patient denies chest pain, denies heart disease, denies high blood pressure,denies cardiac stent, denies prior heart attack, denies irregular heart beat, denies high cholesterol, denies poor circulation, denies heart failure, other cardiac issues, denies claudication, denies cold feet, denies peripheral arterial stent. Respiratory: The patient denies tuberculosis, denies pneumonia, denies frequent cough, denies pulmonary embolism, denies shortness of breath, and denies coughing up blood. Gastrointestinal: The patient denies difficulty swallowing, denies acid reflux, denies ulcers, denies vomiting, denies jaundice/hepatitis, denies gallbladder problems, denies black or tarry stools, denies hemorrhoids, denies bleeding from rectum, denies diverticulitis, denies constipation, denies diarrhea, denies loss of stool control, and denies hernias. Kidney/Bladder: The patient denies kidney stones, NOTES urine infections, and denies bloody urine. Skin: The patient denies a history of skin cancer, denies bleeding/changing moles, and denies a history of skin rash. Neurologic: The patient denies a history of epilepsy/convulsions, denies headaches, denies head/spinal injuries, and denies stroke/TIA. Psychiatric: The patient denies psychiatric medications, denies depression, and denies voices, denies substance abuse. Endocrine: The patient denies thyroid disorders, denies diabetes, and denies hormonal problems. Hematologic: The patient denies a history of bruising, denies bleeding, and denies anemia, denies blood clots. Infections: The patient denies a history of measles and mumps, denies rheumatic fever, and denies sexually transmitted diseases. Musculoskeletal: The patient denies back pain/injury, denies back problems, denies sciatica, denies knee/foot trouble, denies arthritis, or denies gout. When was patient's last Mammogram screening? None Last Colonoscopy: 02/25/2021 Aimee Cortez ? ? PHYSICAL EXAMINATION: ? General: The patient is 31 year old female, well nourished, well hydrated in no acute distress. The patient is oriented to time, place, and person. ? VITALS: Blood pressure 108/70, pulse 100, temperature 36.6 ?C (97.8 ?F), height 172.7 cm (5' 8), weight 93.9 kg (207 lb), SpO2 96 %. Body mass index is 31.47 kg/m?. ? Head: Normal cephalic, atraumatic ? Eyes: pupils are equally round, sclera are clear/anicteric ? Neck is supple with no tracheal deviation ? Respiratory: Normal respiratory excursion and pattern. ? Abdominal exam: benign ? Extremities: no clubbing, cyanosis or edema. ? Neuro: non focal ? Psych: normal mood ? ? IMPRESSION: rectal cancer, need for IV chemotherapy - need for IV access ? PLAN: I have discussed the above with the patient and her mother who is present with her. I have offered placement of portacath I have explained the procedure to the patient. I have explained the risks of the surgery, including but not limited to: infection, bleeding, injury to any blood vessels/nerves, thromboses of blood vessels, line sepsis, injury to lungs (such as pneumothorax or hemothorax and need for chest tube), migration of the catheter, not having any access (inability to place a vascular catheter due to anatomy/etc.), mechanical nonfunctioning of port, infection of port, scar tissue, wound infection, etc. ? the patient understands The patient wishes to proceed.? I have answered all questions to the patient?s satisfaction and the patient has no further questions. Diagnoses: (C20) Rectal cancer (HCC) (primary encounter diagnosis) (Z45.2) Encounter for insertion of venous access port ? Marilu Javed MD
[2021-06-04] VITALS (8 sets, daily range): BP systolic 93–111; BP diastolic 59–72; PULSE 66–80; RESP 16–18; TEMP 36.3–36.6; O2SAT 94–99; BMI 32.1
[2021-06-04] MEDS: Lactated Ringers 1,000 ML 15 ML IV (10:55)
[2021-06-04] MEDS: Ipratropium/Albuterol Sulfate 3 ML AMPUL.NEB INHALATION (11:08)
[2021-06-04] MEDS: Morphine 4 MG/ML Syringe IV (13:50)
[2021-06-04] MEDS: Cefazolin 2 GM in 0.9% Normal Saline 100 ML IV (15:58)
[2021-06-04] MEDS: Lidocaine 1% /Epi 1:100 (50ml) 50 ML VIAL (16:47)
--- NOTE | 2021-06-04 17:19 | PCM.OPRPT ---
Problems Associated Problem List Diagnoses (1) Vascular catheter fitting or adjustment: Report of Operation Date of Procedure: 06/04/21 Pre-Operative Diagnosis: Vascular fitting and adjustment Post-Operative Diagnosis: Same Surgery/Procedure Performed:: Left subclavian PowerPort Surgeon: Rogelio Hood fire supervisor: Cami Cason Type of Anesthesia: Local MAC Anesthesiologist: Jacob Robins Estimated Blood Loss (mL): < 25 cc Description of Procedure: I was called emergently to come in and assess this patient and finished the placement of her PowerPort. Dr. Javed tripped over some cords and as she was starting the case she was able to get the guidewire into the left subclavian area but her knee and her right wrist were hurting her too much she did not feel that she could safely complete the surgery and therefore I came into finish. When I came into the operating room assess the patient anesthesia said that she was stable in the interim my attention is a Dr. Javed it was clear that she was in some distress. She broke scrub and got into a wheelchair where she was taken to the emergency department. I used fluoroscopy to confirm that the guidewire was in the left subclavian vein going down into the superior vena cava. I injected local into the chest. An incision was made electrocautery was used for good hemostasis and a pocket was created. I made a skin misti in the skin where the guidewire came out placed the dilator over the guidewire removing this placed the dilator and sheath over the guidewire removing the dilator and guidewire. Single-lumen catheter was then placed into the superior vena cava without difficulty. I tunneled from the pocket created up into the insertion site of the catheter brought it down into the pocket created cut at the length placed a locking hub onto the catheter and then placed the port onto the catheter securing the tube with a locking hub. It flushed well and was flushed with 3 cc of hep flush. It was sutured into the pocket with 2 sutures of 2-0 Prolene. Skin incisions were closed with deep dermal stitches of 3-0 Vicryl and running 4-0 Monocryl. Dermabond was applied sterile dressings were applied and the patient tolerated the procedure well. She was taken back to the recovery room in satisfactory condition and a postoperative chest x-ray was ordered Admit VTE Documentation VTE Present on Admission: No VTE Mechan Device Prophylaxis: SCD's VTE Pharm Prophylaxis ordered?: No Reason prophylaxis not ordered:: Treatment Not Indicated
--- NOTE | 2021-06-04 17:28 | DCINST_ITS ---
Discharge Instructions Procedure Port-A-Cath Diet Discharge Diet: No restrictions (Pain medication may cause nausea. You should typically eat light foods as you take your pain medication.) Activity Discharge Activity: May Shower (with the bandage in place 1-2 days after surgery. DO NOT SHOWER WHEN YOUR PORT IS ACCESSED.) Additional Activity Instructions:: May not drive, work with heavy equipment, or sign legal documents for [address]. [address] if you are no longer taking narcotic pain medications. You may drive when you are no longer taking pain medications. Dressing / Incision Additional Dressing/Incision Instructions:: Leave the bandage on for 2-3 days. When you remove the bandage, leave the steri-strips intact until they fall off. Follow Up Care Please Follow Up With: Ramila Cooper PA-C When: Call office to schedule an appointment to be seen in 7 days. Test Results: Test results from this visit will be discussed in further detail at your follow-up appointment, if applicable. Discharge Plan Admission Attending Provider: Marilu Javed Primary Care Provider: Deisy Montilla NP Discharge Orders/Prescriptions Prescriptions: New oxycodone-acetaminophen [Endocet] 5-325 mg tablet 1 tab PO Q4H PRN (Reason: pain) 5 Days Qty: 20 RF: 0 No Action celecoxib 200 mg capsule 200 mg PO BID RF: 0 albuterol sulfate 2.5 mg /3 mL (0.083 %) solution for nebulization 2.5 mg inhalation DAILY RF: 0 phenazopyridine 100 mg tablet 100 mg PO TID RF: 0 gabapentin 300 mg capsule 600 mg PO BID RF: 0 morphine 15 mg tablet extended release 15 mg PO BID RF: 0 morphine 15 mg tablet 15 mg PO 4X/DAY RF: 0 metoclopramide HCl [Reglan] 10 mg Tablet 10 mg PO Q6H PRN (Reason: Nausea) RF: 0 Referrals / Follow Up: Marilu Javed MD [STAFF PHYSICIAN] - Deisy Montilla NP, PUBLIC HEALTH DENTIST-C [Primary Care Provider] - Ramila Cooper PA-C [PHYSICIAN SHEARING SHED HAND] - Disposition Disposition (needs filled in before D/C Order can be placed): Home, Self Care
--- NOTE | 2021-06-04 17:50 | RAD_ITS ---
STUDY: X-RAY CHEST REASON FOR EXAM: Female, 31 years old. CHEST PAIN line TECHNIQUE: XR Chest 1 View COMPARISON: 03/29/2018 FINDINGS: There is no demonstrated pleural abnormality. There is a left Port-A-Cath and/or mediport in place. The tip is in the superior vena cava. Right lower lobe platelike atelectasis. Normal size heart. Normal mediastinum and praveen. Normal visualized pulmonary arteries. Normal visualized aortic arch and descending thoracic aorta. Normal visualized thoracic spine. Normal visualized ribs, clavicles, and shoulders. There is no demonstrated abnormality of the visualized soft tissue structures of the upper abdomen. RAD/CXR for Line Placement IMPRESSION: There are no acute findings. Electronically Signed: Benoit Baker MD at 20:57 EST , Service support ,
== END 2021-06-04 23:59 | disposition home or self-care (01) ==
LOC: SDC 09:55 → AC 09:55
PROVIDERS: Surgery; PCP Nurse Practitioner Adult Health; Referring Provider Surgery; Visit Provider Surgery
DX: Z45.2 Encounter for adjustment and management of vascular access device (principal); C20 Malignant neoplasm of rectum; F17.210 Nicotine dependence, cigarettes, uncomplicated; J45.909 Unspecified asthma, uncomplicated
CPT/HCPCS: 36561; 00532; 71045; 77001; 94640; J7120; C1788

== ENCOUNTER 2021-09-04 03:59 | Inpatient (IN) | payer MEDICAID, SELFPAY ==
[2021-09-04] VITALS (7 sets, daily range): BP systolic 104–130; BP diastolic 70–89; PULSE 64–93; RESP 14–18; TEMP 36.3–36.8; O2SAT 78–98; BMI 31.4
--- NOTE | 2021-09-04 04:03 | HP.PCM.HOS_ITS ---
HPI - General General Date of Admission: 09/04/21 HPI Narrative TRACEE MCDONALD, is a 31 F who presents to an outside hospital with shortness of breath as well as oral mucosal and facial lesions. She says that she has been short of breath for about the last 3 to 4 weeks but also ended up presenting to the hospital because of what looked like a herpes outbreak on her left chin and then she noticed that she had lesions in her mouth as well. She says that this causes fairly significant discomfort in her mouth. She feels like she may have had some fevers and chills at home. She is undergoing chemotherapy for rectal cancer and her last dose was a few weeks ago, she does see [facility] oncology here in [place]. At the outside hospital she was found to have an absolute neutrophil count of less than thousand with a decreased white blood cell count. She was afebrile and vital signs are stable however CTA of the chest to rule out PE secondary to hypoxia demonstrated bilateral pneumonia. COVID and flu testing at the outside hospital was negative. She was given Rocephin and azithromycin and also started on steroids secondary to what was felt to be an asthma exacerbation. [facility] Medical History (Updated 09/04/21 @ 04:[address] Zachary Turner MD) Anxiety Asthma Cancer Hepatitis C Migraines Open wound Opiate dependence Smoker Substance abuse Wears glasses Home Medications albuterol sulfate 2.5 mg INHALATION Q6H PRN PRN 06/03/21 [History Last Taken Unknown] celecoxib 200 mg PO BID 06/03/21 [History Last Taken 06/04/21 08:00] gabapentin 600 mg PO BID 06/03/21 [History Last Taken Unknown] albuterol sulfate [ProAir HFA] 2 puff INHALATION Q6H PRN 09/04/21 [History Last Taken Unknown] estradiol 1 g VAGINAL QWEEK 09/04/21 [History Last Taken Unknown] fluticasone propion-salmeterol [Advair Diskus] 1 inh INHALATION BID 09/04/21 [History Last Taken Unknown] Allergy/AdvReac Type Severity Reaction Status Date / Time sulfamethoxazole Allergy Severe Shortness Verified 09/04/21 03:04 [From Bactrim] of breath trimethoprim [From Bactrim] AdvReac Severe Shortness Verified 09/04/21 03:04 of breath Surgical History History of hysterectomy History of open reduction and internal fixation (ORIF) procedure Hx of colonoscopy Social History Smoking Status: Former smoker ROS Constitutional Constitutional: Reports chills and fever(s); Denies fatigue or malaise Eyes Eyes: Denies blurry vision ENT HEENT: Reports mouth lesions; Denies headache(s) or nasal discharge Cardiovascular Cardiovascular: Denies chest pain, dyspnea on exertion or syncope Respiratory/Chest Respiratory/Chest: Reports cough and shortness of breath at rest; Denies shortness of breath with exertion Gastrointestinal Gastrointestinal: Denies constipation, diarrhea, nausea or vomiting Genitourinary Genitourinary: Denies dysuria Neurologic Neurologic: Denies focal weakness, numbness or tremor(s) Psychiatric Psychiatric: Denies anxiety or depression Vital Signs Vital Signs Vital Signs: 09/04/21 02:24 09/04/21 03:15 09/04/21 03:22 Temperature 98.3 F Temperature Source Oral Pulse Rate 73 Respiratory Rate 18 Respiratory Effort Normal Non-Labored Blood Pressure 108/70 Blood Pressure Mean 82 Blood Pressure Source Monitor Blood Pressure Position Semi-Fowlers Blood Pressure Location Right Arm Pulse Ox 94 78 94 Oxygen Delivery Method Room Air Room Air Nasal Cannula Oxygen Flow Rate (L/min) 4 Weight Weight: 200 lb 6 oz Body Mass Index (BMI) 31.4 Physical Exam Const alert and oriented x3 General Appearance: cooperative HEENT normocephalic and moist oral mucous membranes Mouth: oral and palatal mucosa abnormal vesicles Eyes PERRL, EOMs intact bilaterally and conjunctivae normal Neck supple and no JVD Resp normal respiratory effort, no retractions and no use of accessory muscles Auscultation: rhonchi and wheezes; Negative for crackles or rales Cardio regular rate, regular rhythm, S1 normal heart sound, S2 normal heart sound and no murmurs GI soft to palpation, non-tender and non-distended; Negative for hepatosplenomegaly Extremity no clubbing, cyanosis or edema Skin no rashes or lesions noted Neuro no focal motor deficits and no sensory deficits noted Psych affect normal Appearance: appropriate Assessment & Plan Assessment/Plan (1) Pneumonia: (2) Acute respiratory failure with hypoxia: PLAN: 1. Acute hypoxic respiratory failure secondary to bacterial pneumonia and asthma exacerbation/perioral and oral herpes ? We will continue with Levaquin, she did receive Rocephin and azithromycin in the hospital ? When I went in to evaluate her she was not wearing her oxygen and when we checked her oxygen saturation she was 78% on room air ? Obtain a sputum culture, will need to reach out to [facility] for any culture results they may have in the next 24 to 48 hours ? We will continue with steroids and breathing treatment secondary to her history of asthma and her likely asthma exacerbation while here ? Also place her on oral acyclovir secondary to the oral lesions and her ANC less than the thousand. If there is no significant improvement in her ANC may benefit from Granix after touching base with her oncologist in the morning ? D-dimer was obtained at the outside hospital was elevated so CTA of the chest was obtained which was negative for PE but did demonstrate bilateral pneumonia. Viral testing for COVID and flu was negative 2. Rectal cancer ? She is currently undergoing chemotherapy and she underwent radiation for her rectal cancer she says that the next step after she completes her chemotherapy is surgical resection ? She follows with Dr. Guzman ? She does see Dr. Alvarez for pain management. She states that there is discussion for a pain pump but she just saw him an appointment within the last week or so DVT: Lovenox Charges/Coding Visit Charges Inpatient E&M: 42372 Init Hosp L3
[2021-09-04] MEDS: Ipratropium/Albuterol Sulfate 3 ML AMPUL.NEB INHALATION ×2 (06:52→10:53)
[2021-09-04 06:59] LABS: Hematocrit 35.6 % (37-47); Hemoglobin 11.3 g/dL (12.0-15.0); Mean Corp Hgb Conc 31.7 g/dL (32-36); Mean Corpuscular Volume 97.5 fL (81-99); Mean Platelet Vol. 8.9 fl (6.2-12.0); POSITIVE COUNT YES; POSITIVE DIFFERENTIAL YES; POSITIVE MORPHOLOGY YES; RBC Distribution Width CV 14.3 % (11.6-14.6); RBC Distribution Width SD 50.9 fl (35.1-43.9); Red Blood Count 3.65 M/mm3 (4.2-5.4); White Blood Count 1.8 K/mm3 (4.4-11.0)
[2021-09-04 07:03] LABS: Differential Indicated MANUAL DIFF
[2021-09-04] MEDS: Acyclovir 200 MG Capsule 400 MG PO (07:04)
[2021-09-04 07:31] LABS: ALB/GLOB Ratio 0.6 RATIO (0.9-2.4); AST(SGOT) 17 U/L (15-37); Alanine Aminotransfer ALT/SGPT 16 U/L (13-56); Albumin, Serum 2.7 g/dL (3.2-5.0); Alkaline Phosphatase 84 U/L (45-117); Anion Gap 7 (5-15); BUN 14 mg/dL (7-18); BUN/Creat Ratio 21.7 RATIO (10-20); Calcium,Total 9.6 mg/dL (8.5-10.1); Chloride 105 mmol/L (98-107); Creatinine, Serum 0.65 mg/dL (0.55-1.02); EST Glomerular Filtration Rate 112 mL/min (>60); Est Glom Filt Rate - Afr Amer 135 mL/min (>60); Estimated Creatinine Clearance 119.71 ml/min; Globulin 4.8 g/dL (2.2-4.2); Glucose 138 mg/dL (74-106); Potassium 4.4 mmol/L (3.5-5.1); Protein, Total 7.5 g/dL (6.4-8.2); Sodium Level 134 mmol/L (136-145)
[2021-09-04 08:34] LABS: Lymphocyte 21 % (19-41); Monocyte 9 % (0-10); Myelocyte 3 % (0-0); Neutrophil-Band 1 % (0-5); Neutrophil-Segmented 66 % (47-70); Total Cells Counted 100 (MANUAL DIFF)
[2021-09-04 08:39] LABS: Platelet Estimate MOD INC (ADEQ); Red Cell Morphology NORM C+C NORMAL (NORM C&C)
[2021-09-04 08:42] LABS: Absolute Neutrophil Count 1.2 X10^3/uL (2.0-7.7)
[2021-09-04 08:43] LABS: Absolute Lymphocyte Count 0.38 X10^3/uL (0.83-4.51)
[2021-09-04] MEDS: 0.9% Saline Lock 10 ML Syringe IV ×2 (09:03→14:04)
[2021-09-04] MEDS: Gabapentin 600 MG Tablet PO (09:05)
[2021-09-04] MEDS: Celecoxib 200 MG Capsule PO (09:05)
[2021-09-04] MEDS: Enoxaparin 40 MG/0.4 ML Syringe SC (09:08)
[2021-09-04] MEDS: levoFLOXacin IV 750 MG/150 ML BAG 100 MG IV (09:08)
--- NOTE | 2021-09-04 09:47 | PN.HOSP_ITS ---
Subjective Subjective Patient seen and examined. She complained of cramping and nausea and says she last used IV heroin 2 days ago, and thinks she is withdrawing from heroin. She has minimal coughing. She is on 2L of oxygen. She doesnt usually wear oxygen at home. She also complains of burning lesions in her mouth, which she thinks is due to her herpes infection. Review of systems is otherwise negative. Objective Data Objective Data Vital Signs: Vital Signs Temp Pulse Resp BP Pulse Ox 98.1 F 84 16 104/89 H 94 09/04/21 09:29 09/04/21 09:29 09/04/21 09:29 09/04/21 09:29 09/04/21 09:29 Oxygen Flow Rate (L/min) 2 Oxygen Delivery Method Nasal Cannula Weight: 200 lb 6 oz Body Mass Index (BMI) 31.4 Lab / Micro Data Result Diagrams: 09/04/21 06:50 09/04/21 06:50 Labs: Laboratory Results - last 24 hr 09/04/21 06:50: WBC 1.8 L, RBC 3.65 L, Hgb 11.3 L, Hct 35.6 L, MCV 97.5, MCH 31.0, MCHC 31.7 L, RDW Std Deviation 50.9 H, RDW Coeff of Nafisa 14.3, MPV 8.9, Neut % (Auto) Not Reportable, Absolute Neuts (auto) 1.2 L, Absolute Lymphs (auto) 0.38 L, Total Counted 100, Neutrophils % (Manual) 66, Band Neutrophils % 1, Lymphocytes % (Manual) 21, Monocytes % (Manual) 9, Myelocytes % 3 H, Diff Path Review May haroon, Platelet Estimate MOD INC, RBC Morphology NORM C+C 09/04/21 06:50: Sodium 134 L, Potassium 4.4, Chloride 105, Carbon Dioxide 22.0, Anion Gap 7, BUN 14, Creatinine 0.65, Estim Creat Clear Calc 119.71, Est GFR (MDRD) Af Amer 135, Est GFR (MDRD) Non-Af 112, BUN/Creatinine Ratio 21.7 H, Glucose 138 H, Calcium 9.6, Total Bilirubin 0.40, AST 17, ALT 16, Alkaline Phosphatase 84, Total Protein 7.5, Albumin 2.7 L, Globulin 4.8 H, Albumin/Globulin Ratio 0.6 L Physical Exam Const alert, oriented x3 and no apparent distress Exam Limitations: no limitations HEENT head/scalp atraumatic and moist oral mucous membranes HEENT Narrative: has erythematous patches in her oral cavity and throat Head and Scalp: normocephalic Eyes PERRL, EOMs intact bilaterally and conjunctivae normal Neck no lymphadenopathy, supple and no JVD Resp Resp Narrative: mildly diminished breath sounds bibasally, no wheezes or crackles. on 2L of oxygen by nasal canula Cardio regular rate, regular rhythm, S1 normal heart sound and S2 normal heart sound GI normal to inspection, nondistended, normoactive bowel sounds, soft to palpation, non-tender and non-distended Extremity normal to inspection, full ROM and no clubbing, cyanosis or edema Peripheral Pulses: Yes pulses 2+ throughout Skin Skin Narrative: ultiple erythematous macular rash around mouth; chemotherapy port in left chest. Neuro oriented x3 and moves all extremities Sensorium / Orientation: awake and alert Psych affect normal Assessment & Plan Assessment/Plan (1) Acute respiratory failure with hypoxia: (2) Pneumonia: (3) Herpes dermatitis: (4) Opiate dependence: PLAN: #Acute hypoxic respiratory failure due to community acquired pneumonia * On IV Levaquin * on 2 L of oxygen. Titrate oxygen to maintain saturation above 90%. * CT of the chest was negative for PE but showed bilateral pneumonia and COVID test was negative. * Titrate oxygen to maintain saturation above 90%. Breathing treatments with bronchodilators. * #History of rectal cancer * having chemotherapy and radiation. To follow up with oncologist on outpatient basis * #Acute opioid withdrawal * She last used IV heroin about 2 days ago and says she feels like she is going into withdrawal with cramps and shakes and increased sweating. * She states she relapsed because her previous physician stopped her opiates and she saw Dr. Alvarez but is here to establish for a pain pump. * Will start on opiate withdrawal protocol with buprenorphine as she feels like she is going into withdrawal. * #Oral and perioral herpes simplex virus infection * on acyclovir. Will add BMX oral mouthwash to help with pain and discomfort * #Leucopenia * WBC is 1.8 with absolute neutrophil count of 1.2. * Likely due to cancer. Will monitor and trend. Hold off on Granix for now. * DVT prophylaxis: Lovenox Charges/Coding Visit Charges Inpatient E&M: 04519 Subs Hosp L3
--- NOTE | 2021-09-04 11:45 | CASEMGMT ---
RN DANNA Face to Face with patient for initial transition planning/care coordination assessment. RN CM introduced self and role at [facility] [place]. Patient lying in bed, alert and oriented. Patient willing to participate in assessment and is able to answer all questions appropriately. Care providers, pharmacy, and demographics verified. Patient wishes to discharge home, denies need for home health at this time. Patient states he has no further needs or concerns at this time. CM to follow for discharge planning needs that may arise. PCP: Roldan SHETTY Specialists: Megan, oncologist Preferred Pharmacy: [facility] Insurance: [employer] Prescription Benefit: yes Living Will/HPOA: none LNOK: mother Living Arrangements: Patient lives with mother and 12yo daughter in a 2 story home with bed and bath on first floor. Patient states she is independent at home. Transportation: self, mother DME/HHC: Patient states she has nebulizer at home. No previous HHC. Disposition Plan: Patient to discharge home with family support and follow-up plans in place. Micki SHRESTHA, RN, CM
--- NOTE | 2021-09-04 12:08 | CASEMGMT ---
Addendum entered by Micki Cummings 09/04/21 12:45: SW back in to speak with pt. SW asked pt where she goes or where her daughter goes when she uses drugs. Pt states that her mother has custody of her child. Pt states that she primarily stays with her mother but states when she decides to use, she leaves the house. SW asked pt what led to her mother having custody of her child. Pt states they drug raided my house, Children Services got custody of my child and then my mother got custody. SW asked pt when that happened and pt states can't remember. Pt denied any current open CPS cases. Original Note: Social Work Note SW reviewed chart. Pt with history of Substance Abuse and pt states that she just used Heroin two days ago. SW also updated that pt lives with her mother and 12 year old daughter. SW in to speak with pt. SW introduced self and role at [facility]. Pt is alert and orientated, engages appropriately in conversation. Pt confirms she has history of substance abuse and states she just Heroin three days ago. Pt states she snorts Heroin and doesn't use it IV. Pt states she has been in detox and treatment before. Per chart, pt was admitted to [facility] 01/18/2020-01/21/2020 for RAMP program. Pt states that she just recently relapsed about a month ago. Pt states that she relapsed due to being taken off Morphine. Pt states with the pain from her Rectal Cancer she relapsed on Heroin. Pt states she is supposed to get a pain pump. Pt states that she currently see's a counselor named Margo at [facility] 1x week, has a sponsor and goes to AA meetings. Pt denied the need for additional counseling, substance abuse resources. Pt confirms that she does live with her mom and 12 year old daughter. Pt states that her mother is able to take care of her daughter while pt is at [facility]. Pt states she never uses drugs in front of her daughter and her daughter has all of her basic needs met. Pt states she has a history of Anxiety. Pt states she was taking medication, Buspirone but states she stopped taking it. Pt states she as diagnosed with Rectal Cancer in February 2021. Per Chart, pt receives chemotherapy treatment at [facility] in [place]. SW offered support to pt. Pt states that she has good support system. SW offered to provide pt with support groups and pt denied. Pt denied any additional needs or concerns at this time. Micki Cummings ASSURANCE MANAGER, [employer]
--- NOTE | 2021-09-04 14:09 | NURSING ---
pt called out to nursing station and stated she wanted to leave ama. pt stated that no one has given anything for her mouth sores even after dr stated she would order this. pt also stated that someone came to room and was asking questions about her child and her cps case. pt stated she is doing fine and was going to leave. encouraged pt to f/u with family
--- NOTE | 2021-09-04 16:08 | PCM.DC.SUM ---
Providers Date of Admission: 09/04/21 Primary Care Physician: VERA Gaytan Reason For Visit: PNEUMONIA & HYPOXIA Diagnosis Discharge Diagnosis (1) Acute respiratory failure with hypoxia: Status: Acute Code(s): J96.01 - Acute respiratory failure with hypoxia (2) Pneumonia: Status: Acute Code(s): J18.9 - Pneumonia, unspecified organism (3) Herpes dermatitis: Status: Acute Code(s): B00.89 - Other herpesviral infection (4) Opiate dependence: Status: Acute Code(s): F11.20 - Opioid dependence, uncomplicated Medications at Discharge Home Medications albuterol sulfate 2.5 mg INHALATION Q6H PRN PRN 06/03/21 celecoxib 200 mg PO BID 06/03/21 gabapentin 600 mg PO BID 06/03/21 albuterol sulfate [ProAir HFA] 2 puff INHALATION Q6H PRN 09/04/21 estradiol 1 g VAGINAL QWEEK 09/04/21 fluticasone propion-salmeterol [Advair Diskus] 1 inh INHALATION BID 09/04/21 Hospital Course Operations None Procedures None Summary of Care Provided Minutes Spent on Discharge: 40 Hospital Course: Patient is a 51-year-old female who presented from an outside hospital on 09/04/2021 with a complaint of shortness of breath as well as oral and facial lesions. She had been having shortness of breath for about 3 to 4 weeks prior to admission. She also complained of some fever and chills and also discomfort in her mouth because of the oral lesions. Patient had a history of rectal cancer and had chemotherapy and radiation. At the outside hospital, absolute neutrophil count was less than 1000 and she also had leukopenia. She had a CT of the chest which ruled out a PE but showed bilateral pneumonia. COVID and flu testing were negative. She was started on ceftriaxone and azithromycin and transferred to [facility]. On admission she was managed for community-acquired pneumonia and also managed for herpes simplex virus infection. She was started on acyclovir and started on IV Levaquin. Later in the day patient started complaining of feeling like she was withdrawing from opiates. She admitted to using heroin and said last time she used IV heroin was 2 days prior to admission and she felt like she was going into withdrawal. Started on opiate withdrawal therapy with buprenorphine. Patient decided to leave AGAINST MEDICAL ADVICE in the late hours of 08/15/2021. She was counseled about need to strain to complete her antibiotic course but she was adamant and so left AMA on 09/04/2021. Patient seen and examined prior to discharge. She complained of oral soreness due to her oral lesions. She also complained of some shortness of breath and complained of cramps and tremors. Physical Exam Const alert, oriented x3 and no apparent distress General Appearance: cooperative and comfortable Exam Limitations: no limitations HEENT normocephalic, head/scalp atraumatic and moist oral mucous membranes Eyes PERRL, EOMs intact bilaterally and conjunctivae normal Neck no lymphadenopathy, supple and no JVD Resp normal respiratory effort, no retractions and no use of accessory muscles Resp Narrative: mildly diminished breath sounds bibasally, no wheezes or crackles. on 2L of oxygen by nasal canula Auscultation: rhonchi and wheezes; Negative for crackles or rales Cardio regular rate, regular rhythm, S1 normal heart sound, S2 normal heart sound and no murmurs GI normal to inspection, nondistended, normoactive bowel sounds, soft to palpation, non-tender and non-distended; Negative for hepatosplenomegaly Extremity normal to inspection, full ROM and no clubbing, cyanosis or edema Skin no rashes or lesions noted Skin Narrative: ultiple erythematous macular rash around mouth; chemotherapy port in left chest. Neuro oriented x3, moves all extremities, no focal motor deficits and no sensory deficits noted Sensorium / Orientation: awake and alert Psych affect normal Appearance: appropriate Weight / BMI Weight Weight: 200 lb 6.015 oz Body Mass Index (BMI) 31.4 ABG / Lab / Microbiology Data Result Diagrams: 09/04/21 06:50 09/04/21 06:50 Laboratory: Laboratory Results - last 24 hr 09/04/21 06:50: WBC 1.8 L, RBC 3.65 L, Hgb 11.3 L, Hct 35.6 L, MCV 97.5, MCH 31.0, MCHC 31.7 L, RDW Std Deviation 50.9 H, RDW Coeff of Nafisa 14.3, Plt Count , MPV 8.9, Neut % (Auto) Not Reportable, Absolute Neuts (auto) 1.2 L, Absolute Lymphs (auto) 0.38 L, Total Counted 100, Neutrophils % (Manual) 66, Band Neutrophils % 1, Lymphocytes % (Manual) 21, Monocytes % (Manual) 9, Myelocytes % 3 H, Diff Path Review May foll, Platelet Estimate MOD INC, RBC Morphology NORM C+C 09/04/21 06:50: Sodium 134 L, Potassium 4.4, Chloride 105, Carbon Dioxide 22.0, Anion Gap 7, BUN 14, Creatinine 0.65, Estim Creat Clear Calc 119.71, Est GFR (MDRD) Af Amer 135, Est GFR (MDRD) Non-Af 112, BUN/Creatinine Ratio 21.7 H, Glucose 138 H, Calcium 9.6, Total Bilirubin 0.40, AST 17, ALT 16, Alkaline Phosphatase 84, Total Protein 7.5, Albumin 2.7 L, Globulin 4.8 H, Albumin/Globulin Ratio 0.6 L Meaningful Use Info Meaningful Use Diagnoses (Choose all that apply): None applicable Discharge Plan Admission Admit Date/Time: 09/04/21 03:59 Primary Reason for Your Visit: community acquired pneumonia Attending Provider: Armida Alves Primary Care Provider: Deisy Montilla NP Discharge Orders/Prescriptions Prescriptions: No Action celecoxib 200 mg capsule 200 mg PO BID RF: 0 albuterol sulfate 2.5 mg /3 mL (0.083 %) solution for nebulization 2.5 mg inhalation Q6H PRN PRN (Reason: sob) RF: 0 gabapentin 300 mg capsule 600 mg PO BID RF: 0 fluticasone propion-salmeterol [Advair Diskus] 250-50 mcg/dose Blister With Device 1 inh INHALATION BID RF: 0 estradiol 0.01 % (0.1 mg/gram) Cream 1 g VAGINAL QWEEK RF: 0 albuterol sulfate [ProAir HFA] 90 mcg/actuation Hfa Aerosol Inhaler 2 puff INHALATION Q6H PRN (Reason: sob) RF: 0 Referrals / Follow Up: Deisy Montilla NP, [employer] [facility] [Primary Care Provider] - Disposition Disposition (needs filled in before D/C Order can be placed): Against Medical Advice Charges/Coding Visit Charges OBSV E&M: 30905 Observ/hosp same date L2
[2021-09-07 10:08] LABS: Pathologist Review Reviewed
== END 2021-09-04 14:18 | disposition left against medical advice (07) | DRG 139 ==
PROVIDERS: Admitting Provider Family Medicine; PCP Nurse Practitioner Adult Health; Visit Provider Student in an Organized Health Care Education/Training Program
DX: J15.9 Unspecified bacterial pneumonia (principal); J96.01 Acute respiratory failure with hypoxia; C20 Malignant neoplasm of rectum; F11.23 Opioid dependence with withdrawal; J45.901 Unspecified asthma with (acute) exacerbation; B00.89 Other herpesviral infection; Z87.891 Personal history of nicotine dependence
CPT/HCPCS: 80053; 85025; 94640; 94762; A4216

== ENCOUNTER 2022-02-02 17:04 | Inpatient (IN) | payer MEDICAID, SELFPAY ==
[2022-02-02] VITALS (7 sets, daily range): BP systolic 99–114; BP diastolic 59–75; PULSE 72–101; RESP 14–18; TEMP 36–36.9; O2SAT 95–98; BMI 25.2; BMI 25.1
--- NOTE | 2022-02-02 20:06 | EDS_ITS ---
HPI History of Present Illness Chief Complaint: Substance Abuse Informant: patient Onset/Context/Timing Onset: Today Context: Gradual Onset Timing: Continuous Worsened by: Nothing Relieved by: Nothing Associated Symptoms Associated Symptoms: Negative for vomiting*, diarrhea*, fever*, rash*, seizure, tremor, palpatations, change in mental status, trauma, suicidal ideation or homicidal ideation Narrative Narrative: Patient presents requesting detox from IV opiates. Patient states she uses heroin and fentanyl. Patient states she uses approximately 1/4 g/day. Patient states her last use was about noon today. Patient denies any nausea or vomiting. Patient denies any diarrhea. Patient denies any fevers or chills. Patient denies any rashes or boils. Patient denies any seizures or tremors. Patient denies any suicidal or homicidal ideations. Patient states she has been through detox in the past. Patient states her last detox was approximately [address] [facility] Medical History Anxiety Asthma Cancer Hepatitis C Migraines Open wound Opiate dependence Smoker Substance abuse Wears glasses Home Medications albuterol sulfate 2.5 mg/3 mL (0.083 %) solution for nebulization 2.5 mg inhalation Q6H PRN PRN sob 06/03/21 [History Last Taken Unknown] gabapentin 300 mg capsule 600 mg PO BID pain 06/03/21 [History Last Taken Unknown] albuterol sulfate 90 mcg/actuation aerosol inhaler (ProAir HFA) 2 puff inhalation Q6H PRN sob 09/04/21 [History Last Taken Unknown] fluticasone 250 mcg-salmeterol 50 mcg/dose blistr powdr for inhalation (Advair Diskus) 1 inh inhalation BID 09/04/21 [History Last Taken Unknown] conjugated estrogens 0.625 mg tablet (Premarin) 0.625 mg PO 02/02/22 [History Last Taken Unknown] Allergy/AdvReac Type Severity Reaction Status Date / Time sulfamethoxazole Allergy Severe Shortness Verified 02/02/22 17:06 [From Bactrim] of breath trimethoprim [From Bactrim] AdvReac Severe Shortness Verified 02/02/22 17:06 of breath buprenorphine [From Suboxone] AdvReac Vomiting Verified 02/02/22 17:06 naloxone AdvReac Vomiting Verified 02/02/22 17:06 Surgical History History of hysterectomy History of open reduction and internal fixation (ORIF) procedure Hx of colonoscopy Social History Smoking Status: Current every day smoker tobacco type: cigarettes ROS ROS ED Constitutional Constitutional ED: Denies chills or fever(s) Eyes Eyes: Denies blurry vision or change in vision ENT ENT ED: Denies rhinorrhea or sore throat Cardiovascular Cardiovascular: Denies chest pain or palpitations Respiratory/Chest Respiratory/Chest: Denies cough or dyspnea Gastrointestinal Gastrointestinal: Denies nausea or vomiting Genitourinary Genitourinary ED: Denies dysuria or hematuria Musculoskeletal Musculoskeletal: Denies back pain or neck pain Integumentary Denies abscess or rash Neurologic Neurologic: Denies headache(s) or weakness Allergic/Immunologic Allergic/Immunologic ED: Denies mouth swelling or urticaria EXAM Physical Exam Const Vital Signs: 02/02/22 17:06 02/02/22 19:50 Temperature 96.8 F L Temperature Source Temporal Pulse Rate 101 H 76 Respiratory Rate 16 14 Blood Pressure 114/75 107/63 Blood Pressure Mean 88 77 Pulse Ox 98 96 Oxygen Delivery Method Room Air Room Air Positive well nourished and well developed General Appearance ED: well developed HEENT Reports moist mucous membranes Neck supple and no JVD Resp normal respiratory effort and clear to auscultation bilaterally Cardio regular rate, regular rhythm and no murmurs GI normal to inspection, nondistended, normoactive bowel sounds and non-tender Palpation: soft Extremity normal to inspection General Extremety ED: Negative for edema or tenderness General Extremity: Negative for edema Neuro oriented x3, CN's II-XII intact bilaterally and no sensory deficits noted Sensorium / Orientation: alert Motor Exam: strength 5/5 throughout Psych mental status grossly normal Skin no rashes or lesions noted MDM MDM MDM Narrative Medical decision making narrative: Basic labs were obtained. Case was discussed with the hospitalist. She will admit the patient to her service. Patient understood and was agreeable with the plan. All questions were answered. Discharge Plan Triage Chief Complaint: Substance Abuse ED Provider: Jacob Lipscomb Dx/Rx/DC Orders Clinical Impression: Opiate withdrawal, Opiate dependence, Desire for detoxification Prescriptions: No Action albuterol sulfate 2.5 mg /3 mL (0.083 %) solution for nebulization 2.5 mg inhalation Q6H PRN PRN (Reason: sob) Label Comments: Use 3 mL via nebulizer every 6 hours as needed for wheezing/shortness of breath. Rx Instructions: pt states she has been using this at home 6X/day gabapentin 300 mg capsule 600 mg PO BID Label Comments: Take 2 capsules by mouth twice daily for 10 days. fluticasone propion-salmeterol [Advair Diskus] 250-50 mcg/dose Blister With Device 1 inh INHALATION BID albuterol sulfate [ProAir HFA] 90 mcg/actuation Hfa Aerosol Inhaler 2 puff INHALATION Q6H PRN (Reason: sob) Premarin 0.625 mg tablet 0.625 mg PO Label Comments: Take 1 tablet by mouth once daily. Primary Care Provider: Deisy Montilla NP Referrals: Deisy Montilla NP, PHYSICIAN/INTERNIST-C [Primary Care Provider] - Disposition Disposition: Acute Care Hospital [facility]
--- NOTE | 2022-02-02 20:23 | PCM.HP.STD ---
HPI - General General Date of Admission: 02/02/22 Date of Service: 02/02/22 Chief Complaint: Acute Opiate Withdrawal HPI Narrative The patient is a 32 y/o F w/ PMHx: Anxiety and Depression, Tobacco use, Chronic migraines, Hepatitis C w/ Polysubstance abuse (heroin, fantanyl, ~ 1/4 gm daily, last usage IV ~ noon on day of presentation), Asthma, recently diagnosed Colorectal cancer (03/2021) s/p resection with partial colectomy with ostomy in place following w/ Dr. Guzman with planned chemotherapy initiation once patient has gone through detoxification per discussion with patient who presents to the [facility] ED on 02/02/22 with onset of fatigue, yawning, malaise, rhinorrhea, restlessness and diaphoresis with early onset acute opiate withdrawal requesting admission for detoxification. She does not allergies to subutex and suboxone with severe dyspnea and nausea/emesis but requests the other PRN agents. She notes planned chemotherapy start once she has been through detoxification program. She reports that she had been in detoxification program ~ 2 years prior and was clean until ~ 8 months ago. CBC, CMP, UDS, ethyl alcohol, testing pending upon evaluation [facility] Medical History Anxiety Asthma Cancer Colorectal cancer Hepatitis C Herpes dermatitis Migraines Open wound Opiate dependence Smoker Substance abuse Home Medications albuterol sulfate 2.5 mg/3 mL (0.083 %) solution for nebulization 2.5 mg inhalation Q6H PRN PRN sob 06/03/21 [History Last Taken Unknown] gabapentin 300 mg capsule 600 mg PO BID pain 06/03/21 [History Last Taken Unknown] albuterol sulfate 90 mcg/actuation aerosol inhaler (ProAir HFA) 2 puff inhalation Q6H PRN sob 09/04/21 [History Last Taken Unknown] fluticasone 250 mcg-salmeterol 50 mcg/dose blistr powdr for inhalation (Advair Diskus) 1 inh inhalation BID Check with primary doctor 09/04/21 [History Last Taken Unknown] conjugated estrogens 0.625 mg tablet (Premarin) 0.625 mg PO DAILY Check with primary doctor 02/02/22 [History Last Taken Unknown] Allergy/AdvReac Type Severity Reaction Status Date / Time sulfamethoxazole Allergy Severe Shortness Verified 02/02/22 17:06 [From Bactrim] of breath trimethoprim [From Bactrim] AdvReac Severe Shortness Verified 02/02/22 17:06 of breath buprenorphine [From Suboxone] AdvReac Vomiting Verified 02/02/22 17:06 naloxone AdvReac Vomiting Verified 02/02/22 17:06 Family History (Updated 02/02/22 @ 23:[address] Marcy Gonzalez MD) Father Polysubstance abuse other (Patient denies any marked maternal family history including HD, DM, CA.) Surgical History History of colectomy History of hysterectomy History of open reduction and internal fixation (ORIF) procedure Hx of colonoscopy S/P colostomy Social History (Updated 02/02/22 @ 23:[address] Marcy Gonzalez MD) household members: significant other Smoking Status: Current every day smoker tobacco type: cigarettes Smoking packs per day: 0.5 Smoking cigarettes per day: 10.0 alcohol intake: current details: Occasional. substance use type: heroin, IV drugs and other details: Fentanyl. ROS ROS Narrative Admission Review of Systems: CONSTITUTIONAL: No weight loss, fever, + chills, weakness or fatigue. HEENT: Eyes: No visual loss, blurred vision, double vision or yellow sclerae. Ears, Nose, Throat: No hearing loss, sneezing, congestion, runny nose or sore throat. SKIN: No rash or itching, lesions, wounds. CARDIOVASCULAR: No chest pain, chest pressure or chest discomfort, palpitations, edema, orthopnea, syncopal events. RESPIRATORY: No shortness of breath, cough or sputum, wheezing, hemoptysis. GASTROINTESTINAL: + anorexia, nausea, No vomiting, diarrhea, abdominal pain, melena, BRBPR. GENITOURINARY: No dysuria, frequency, urgency or retention. NEUROLOGICAL: No headache, dizziness, syncope, paralysis, ataxia, numbness or tingling in the extremities, focal weakness, change in bowel or bladder control, seizure. MUSCULOSKELETAL: + muscle, back pain, joint pain or stiffness. HEMATOLOGIC: No anemia, bleeding or bruising. LYMPHATICS: No enlarged nodes. No history of splenectomy. PSYCHIATRIC: + history of depression or anxiety. ENDOCRINOLOGIC: + reports of sweating. No polyuria or polydipsia. ALLERGIES: + history of asthma. Vital Signs Vital Signs Vital Signs: 02/02/22 17:06 02/02/22 19:50 02/02/22 20:06 Temperature 96.8 F L Temperature Source Temporal Pulse Rate 101 H 76 Respiratory Rate 16 14 16 Blood Pressure 114/75 107/63 Blood Pressure Mean 88 77 Pulse Ox 98 96 Oxygen Delivery Method Room Air Room Air 02/02/22 20:22 Temperature 97.5 F L Temperature Source Temporal Pulse Rate 81 Respiratory Rate 16 Blood Pressure 111/70 Blood Pressure Mean 83 Pulse Ox 97 Oxygen Delivery Method Room Air Weight Weight: 161 lb 2.526 oz Body Mass Index (BMI) 25.2 Physical Exam Narrative Physical Examination: General: Awake, alert, oriented x 3 and cooperative, seated upright in the ED bed, fatigued, yawning frequently, restless. Skin: Normal color, normal turgor, no icterus, no cyanosis. HEENT: AT/NC, EOMI, PERRLA, mildly dry MM, no carotid bruits or JVD noted. Lungs: Mild diminished, greater bases, appropriate effort, occasional end expiratory wheeze, no rales or rhonchi. Heart: Currently regular rate and rhythm; no gallop, rub audible. Abdomen: Soft, NTTP, no obvious distention, status post partial colectomy with ostomy in place left lower quadrant, appropriate output in the ostomy bag as well as flatus, mildly hyperactive bowel sounds, no obvious HSM. Extremities: No cyanosis, clubbing, or edema. Neurological: Patient awake, alert, oriented as noted, cognitive function intact; pupils equally reactive to light and accommodation, cranial nerves II-XII grossly normal, moving all 4 extremities, no focal deficits, strength mildly globally decreased secondary to acute complaints, yawning and fatigue but restless Psychiatric: Affect appears fatigued, restless, no acute evidence of depressive or anxiety feelings but does have underlying history. Assessment & Plan Assessment/Plan (1) Opiate withdrawal: PLAN: Plan The patient is a 32 y/o F w/ PMHx: Anxiety and Depression, Tobacco use, Chronic migraines, Hepatitis C w/ Polysubstance abuse (heroin, fantanyl, ~ 1/4 gm daily, last usage IV ~ noon on day of presentation), Asthma, recently diagnosed Colorectal cancer (03/2021) s/p resection with partial colectomy with ostomy in place following w/ Dr. Guzman with planned chemotherapy initiation once patient has gone through detoxification per discussion with patient who presents to the [facility] ED on 02/02/22 with onset of acute opiate withdrawal symptoms. #1. Acute Opiate Withdrawal: Will admit to [facility], routine labs including CBC, CMP, urine for drug screen pending upon evaluation, given allergies unable to use subutex per discussion with patient, will use as needed tylenol, ibuprofen, bowel regimen, gabapentin, Bentyl, Vistaril, methocarbamol, clonidine, PRN nightly trazodone for insomnia, IV fluids, IV antiemetics. Once patient clinically improved and completion of taper nearing will plan consultation with case management for transition to next level of rehabilitation care. #2. Polysubstance Abuse, IVDA Hx, History of Hepatitis C, Chronic: Patient currently not candidate for hep C treatment currently as needs to be clean, sober x 6 months, documented attendance NA or AA meetings, counseling and ongoing negative drug screens. Once appropriate GI, ID to initiate. HIV, hepatitis panel to assess for co-infection pending. #3. Depression and Anxiety: Patient not on any regimen, encourage continued outpatient follow-up as well as counseling especially given underlying recent cancer diagnosis. #4. Colorectal cancer: Status post resection with partial colectomy with ostomy in place with planned initiation of chemotherapy once patient is undergone acute detoxification. Patient is following outpatient with Dr. Macias with [facility] oncology. #5. Tobacco Abuse: Encouraged cessation, inpatient consultation per RT, NR if desired. #6. Chronic asthma: We will hold home inhalers and in the interim transition to ATC DuoNeb therapies, as needed albuterol. #7. DVT prophylaxis: Low risk, encourage ambulation. Charges/Coding Visit Charges Inpatient E&M: 23932 Init Hosp L3
[2022-02-02] MEDS: Lactated Ringers 1,000 ML 125 ML IV (22:05)
[2022-02-02] MEDS: Methocarbamol 750 MG Tablet 1500 MG PO (22:18)
[2022-02-02] MEDS: hydrOXYzine PAM 25 MG Capsule 50 MG PO (22:18)
[2022-02-02] MEDS: Ipratropium/Albuterol Sulfate 3 ML AMPUL.NEB INHALATION (22:35)
[2022-02-02] MEDS: Gabapentin 600 MG Tablet PO (23:38)
[2022-02-03] LABS: Internal QC Validated? YES +Cl - CLEAR BKGD; Pregnancy, Serum, hCG Quali. NEGATIVE Negative
[2022-02-03] MEDS: 0.9% Saline Lock 10 ML Syringe IV (00:18)
[2022-02-03] MEDS: 0.9 % NaCl (Sterile) Posiflush 10 mL IV (00:18)
[2022-02-03 00:35] LABS: Absolute Lymphocyte Count 0.87 X10^3/uL (0.83-4.51); Basophil# 0.01 X10^3/uL; Basophil% 0.2 % (0-1); Eosinophil# 0.07 X10^3/uL; Eosinophils% 1.6 % (0-5); Hematocrit 28.1 % (37-47); Hemoglobin 8.3 g/dL (12.0-15.0); Lymphocyte # 0.87 X10^3/ul (0.83-4.51); Lymphocyte % 20.4 % (19-41); Mean Corp Hgb Conc 29.5 g/dL (32-36); Mean Corpuscular Hgb 24.7 pg (27.0-32.0); Mean Corpuscular Volume 83.6 fL (81-99); Mean Platelet Vol. 8.5 fl (6.2-12.0); Monocyte# 0.28 X10^3/uL; Monocyte% 6.6 % (0-10); NRBC Flagged by Analyzer 0 % (0-5); Neutrophil # 3.01 X10^3/uL (2.7-7.7); Neutrophil % 70.7 % (47-70); Platelet Count 423 K/mm3 (150-450); RBC Distribution Width SD 51.7 fl (35.1-43.9); Red Blood Count 3.36 M/mm3 (4.2-5.4); White Blood Count 4.3 K/mm3 (4.4-11.0)
[2022-02-03 00:51] LABS: Alcohol, Blood (Medical)-Serum < 3.0 mg/dL
[2022-02-03 00:54] LABS: ALB/GLOB Ratio 0.6 RATIO (0.9-2.4); AST(SGOT) 8 U/L (15-37); Alanine Aminotransfer ALT/SGPT 11 U/L (13-56); Albumin, Serum 2.6 g/dL (3.2-5.0); Alkaline Phosphatase 87 U/L (45-117); Anion Gap 7 (5-15); BUN 10 mg/dL (7-18); BUN/Creat Ratio 17.7 RATIO (10-20); Calcium,Total 9.1 mg/dL (8.5-10.1); Chloride 106 mmol/L (98-107); Creatinine, Serum 0.57 mg/dL (0.55-1.02); EST Glomerular Filtration Rate 130 mL/min (>60); Est Glom Filt Rate - Afr Amer 157 mL/min (>60); Estimated Creatinine Clearance 130.19 ml/min; Globulin 4.3 g/dL (2.2-4.2); Glucose 100 mg/dL (74-106); Potassium 3.5 mmol/L (3.5-5.1); Protein, Total 6.9 g/dL (6.4-8.2); Sodium Level 143 mmol/L (136-145)
[2022-02-03 01:00] LABS: International Normalized Ratio 1.2; Prothrombin Time (Protime)PT. 14.4 SECONDS (11.7-14.9)
[2022-02-03 01:42] LABS: HIV - WCH Non-Reactive (Nonreactive)
[2022-02-03 04:16] VITALS: BP 109/56; PULSE 73; RESP 18; TEMP 36.9; O2SAT 94
[2022-02-03 04:40] LABS: Amphetamine Urine VISTA NEGATIVE (<1000 ng/mL); Barbiturate Urine VISTA NEGATIVE (< 200 ng/mL); Benzodiazepine Urine VISTA NEGATIVE (< 200 ng/mL); Cocaine Urine VISTA NEGATIVE (< 300 ng/mL); Ecstacy Urine VISTA NEGATIVE (< 500 ng/mL); Methadone Urine VISTA NEGATIVE (< 300 ng/mL); PCP Urine VISTA NEGATIVE (< 25 ng/mL); THC Urine VISTA NEGATIVE (< 50 ng/mL); Vista UDS pH Range 6
[2022-02-03 07:01] VITALS: PULSE 73; RESP 16
[2022-02-03] MEDS: Ipratropium/Albuterol Sulfate 3 ML AMPUL.NEB INHALATION ×3 (07:01→18:57)
--- NOTE | 2022-02-03 07:22 | PCM.PN.HOSP ---
Subjective Subjective Patient is a 32-year-old lady with history of polysubstance abuse presenting with acute opioid withdrawal Objective Data Objective Data Vital Signs: Vital Signs Temp Pulse Resp BP Pulse Ox O2 Del Method 98.5 F 73 18 109/56 L 94 Room Air 02/03/22 04:16 02/03/22 04:16 02/03/22 04:16 02/03/22 04:16 02/03/22 04:16 02/03/22 04:16 Oxygen Delivery Method Room Air Weight: 72.6 kg Body Mass Index (BMI) 25.1 Intake & Output: Intake and Output for Last 24 Hours 02/01/22 02/02/22 02/03/22 23:59 23:59 23:59 Intake Total 1285.42 / 1285.42 Balance 1285.42 / 1285.42 Lab / Micro Data Result Diagrams: 02/03/22 00:20 02/03/22 00:20 Labs: Laboratory Results - last 24 hr 02/02/22 23:35: Serum , Qual NEGATIVE 02/03/22 00:20: HIV 1&2 Antibody Non-Reactive 02/03/22 00:20: WBC 4.3 L, RBC 3.36 L, Hgb 8.3 L, Hct 28.1 L, MCV 83.6, MCH 24.7 L, MCHC 29.5 L, RDW Std Deviation 51.7 H, RDW Coeff of Nafisa 17.0 H, Plt Count 423, MPV 8.5, Immature Gran % (Auto) 0.500, Neut % (Auto) 70.7 H, Lymph % (Auto) 20.4, [place] % (Auto) 6.6, Eos % (Auto) 1.6, Baso % (Auto) 0.2, Absolute Neuts (auto) 3.0, Absolute Lymphs (auto) 0.87, Nucleated RBC % 0 02/03/22 00:20: PT 14.4, INR 1.2 02/03/22 00:20: Sodium 143, Potassium 3.5, Chloride 106, Carbon Dioxide 30.0, Anion Gap 7, BUN 10, Creatinine 0.57, Estim Creat Clear Calc 130.19, Est GFR (MDRD) Af Amer 157, Est GFR (MDRD) Non-Af 130, BUN/Creatinine Ratio 17.7, Glucose 100, Calcium 9.1, Total Bilirubin 0.80, AST 8 L, ALT 11 L, Alkaline Phosphatase 87, Total Protein 6.9, Albumin 2.6 L, Globulin 4.3 H, Albumin/Globulin Ratio 0.6 L 02/03/22 00:20: Ethyl Alcohol < 3.0 02/03/22 04:00: Urine Opiates Screen NEGATIVE, Urine Methadone Screen NEGATIVE, Ur Barbiturates Screen NEGATIVE, Ur Phencyclidine Scrn NEGATIVE, Ur Amphetamines Screen NEGATIVE, MDMA (Ecstasy) Screen NEGATIVE, U Benzodiazepines Scrn NEGATIVE, Urine Cocaine Screen NEGATIVE, U Cannabinoids Screen NEGATIVE, Ur Drug Screen Comment Physical Exam Narrative GENERAL: cooperative HEENT: Atraumatic; normocephalic EYES; Anicteric, Normal Conjunctiva NECK; supple, normal thyroid, RESPIRATORY: Diminished to auscultation CARDIOVASCULAR: Regular S1 S2, GI: soft, normoactive bowel sounds, : No Renal angle tenderness; EXTREMITIES: No edema, no clubbing, MUSCULOSKELETAL: no muscle wasting NEURO: Awake; no lateralizing signs. SKIN: No Rash PSYCH; Flat affect Assessment & Plan Assessment/Plan (1) Opiate withdrawal: PLAN: Plan Patient is a 32-year-old lady with history of polysubstance abuse presenting with acute opioid withdrawal 1. Acute opioid withdrawal ? Patient has been admitted to regular nursing floor managed with phenobarb taper 2. Polysubstance abuse ? Including heroin and fentanyl counseled on cessation 3. History of hep C ? Currently being treated patient to follow-up with PCP for subsequent care 4. Mild intermittent asthma ? Did continue patient home bronchodilator regimen 5. Tobacco dependence - Counseled on cessation, offered nicotine patch for tobacco cravings 6. DVT prophylaxis ? Low risk did encourage early ambulation Charges/Coding Visit Charges Inpatient E&M: 57884 Subs Hosp L2
[2022-02-03 10:30] VITALS: BP 104/62; PULSE 74; RESP 12; TEMP 36.8; O2SAT 96
[2022-02-03] MEDS: Ensure Plus High Protein 120 ML LIQUID PO (10:55)
[2022-02-03] MEDS: Ibuprofen 600 MG Tablet PO (10:56)
[2022-02-03] MEDS: Gabapentin 600 MG Tablet PO ×2 (10:56→21:55)
[2022-02-03 13:36] VITALS: PULSE 75; RESP 16
[2022-02-03 18:58] VITALS: PULSE 72; RESP 18
[2022-02-03 21:02] VITALS: BP 105/58; PULSE 79; RESP 16; TEMP 36.8; O2SAT 95
[2022-02-04 02:58] VITALS: BP 99/55; PULSE 65; RESP 16; TEMP 36.7; O2SAT 95
[2022-02-04] MEDS: Ipratropium/Albuterol Sulfate 3 ML AMPUL.NEB INHALATION (06:56)
[2022-02-04 06:57] VITALS: PULSE 82; RESP 17; O2SAT 98
[2022-02-04 08:27] VITALS: BP 133/60; PULSE 90; RESP 16; TEMP 36.6; O2SAT 100
[2022-02-04] MEDS: 0.9% Saline Lock 10 ML Syringe IV (08:33)
--- NOTE | 2022-02-04 11:15 | PCM.HOSP.N ---
Hospitalist Note Patient left AGAINST MEDICAL ADVICE on the a.m. of 02/04/2022.
== END 2022-02-04 09:00 | disposition left against medical advice (07) | DRG 770 ==
LOC: ED 20:18 → MS3 20:31
PROVIDERS: Admitting Provider Family Medicine; Emergency Provider Emergency Medicine; PCP Nurse Practitioner Adult Health; Visit Provider Internal Medicine
DX: F11.23 Opioid dependence with withdrawal (principal); C19 Malignant neoplasm of rectosigmoid junction; G43.709 Chronic migraine without aura, not intractable, without status migrainosus; F17.210 Nicotine dependence, cigarettes, uncomplicated; J45.20 Mild intermittent asthma, uncomplicated; F32.A Depression, unspecified; Z86.19 Personal history of other infectious and parasitic diseases
CPT/HCPCS: 36415; 80053; 80307; 82077; 84703; 85025; 85610; 86703; 86704; 86705; 86706; 86707; 86803; 87340; 87350; 94640; 97802; 99283; 99406; J7120; A4216

== ENCOUNTER 2022-03-24 18:49 | Emergency (ER) | payer MEDICAID, SELFPAY ==
[2022-03-24 18:50] VITALS: BP 114/70; PULSE 93; RESP 18; TEMP 35.5; O2SAT 100; BMI 24.3
[2022-03-24 18:53] VITALS: BP 114/70; PULSE 93; RESP 18; TEMP 35.5; O2SAT 100
--- NOTE | 2022-03-24 20:19 | EX.ED.DYSGE1 ---
HPI History of Present Illness Chief Complaint: General Illness Informant: patient Narrative Narrative: 32-year-old female has no complaints. In the last month and a half she has been admitted to [facility] in [place] due to sepsis. She has a history of IV drug abuse. She left there AMA. Within the last 2 to 3 weeks she was admitted to [facility] for sepsis and pulmonary emboli. She left there AMA. She just followed up today with us to see if she is okay. When she left without hospital she was not discharged with any medications. She denies any chest pain, abdominal pain. She denies any fever or chills. She really has no complaints and states she is feeling well. Prior similar symptoms: No Recent Illness/Hospitalization: Yes PFSH PFSH Medical History Anxiety Asthma Cancer Colorectal cancer Hepatitis C Herpes dermatitis Migraines Open wound Opiate dependence Smoker Substance abuse Home Medications albuterol sulfate 2.5 mg/3 mL (0.083 %) solution for nebulization 2.5 mg inhalation Q6H PRN PRN sob 06/03/21 [History Last Taken Unknown] gabapentin 300 mg capsule 600 mg PO BID pain 06/03/21 [History Last Taken Unknown] albuterol sulfate 90 mcg/actuation aerosol inhaler (ProAir HFA) 2 puff inhalation Q6H PRN sob 09/04/21 [History Last Taken Unknown] fluticasone 250 mcg-salmeterol 50 mcg/dose blistr powdr for inhalation (Advair Diskus) 1 inh inhalation BID Check with primary doctor 09/04/21 [History Last Taken Unknown] conjugated estrogens 0.625 mg tablet (Premarin) 0.625 mg PO DAILY Check with primary doctor 02/02/22 [History Last Taken Unknown] Allergy/AdvReac Type Severity Reaction Status Date / Time sulfamethoxazole Allergy Severe Shortness Verified 03/24/22 18:54 [From Bactrim] of breath trimethoprim [From Bactrim] AdvReac Severe Shortness Verified 03/24/22 18:54 of breath buprenorphine [From Suboxone] AdvReac Vomiting Verified 03/24/22 18:54 naloxone AdvReac Vomiting Verified 03/24/22 18:54 Family History Father Polysubstance abuse Surgical History History of colectomy History of hysterectomy History of open reduction and internal fixation (ORIF) procedure Hx of colonoscopy S/P colostomy Social History household members: significant other Smoking Status: Current every day smoker tobacco type: cigarettes alcohol intake: current details: Occasional. substance use type: heroin, IV drugs and other details: Fentanyl. ROS ROS ED ROS Narrative Denies any complaints. No fever or chills. Review of Systems ROS Unobtainable: Denies due to encephalopathy Constitutional Constitutional ED: Denies chills or fever(s) Eyes Eyes: Denies blurry vision ENT ENT ED: Denies ear pain Cardiovascular Cardiovascular: Denies chest pain Respiratory/Chest Respiratory/Chest: Denies cough or dyspnea Gastrointestinal Gastrointestinal: Denies abdominal pain Genitourinary Genitourinary ED: Denies dysuria or hematuria Musculoskeletal Musculoskeletal: Denies arthralgias Integumentary Denies abscess or Abrasions Neurologic Neurologic: Denies headache(s) Psychiatric Psychiatric: Denies anxiety or depression Endocrine Endocrinology: Denies cold intolerance Hematologic/Lymphatic Hematologic/Lymphatic: Reports none Allergic/Immunologic Allergic/Immunologic ED: Denies mouth swelling, tongue swelling or urticaria EXAM Physical Exam Narrative Exam Narrative: 32-year-old female. No acute distress. HEENT exam normal. Neck nontender. Lungs clear. Heart regular rate and rhythm no murmur abdomen soft nontender. Moving all 4 extremities. Nontender no edema. Skin unremarkable. Neurologically she is awake alert. Const Vital Signs: 03/24/22 18:50 03/24/22 18:53 03/24/22 19:22 Temperature 96 F L 96 F L Temperature Source Temporal Temporal Pulse Rate 93 93 Respiratory Rate 18 18 Respiratory Effort Normal Non-Labored Respiratory Pattern Normal Blood Pressure 114/70 114/70 Blood Pressure Mean 84 84 Pulse Ox 100 100 Oxygen Delivery Method Room Air Room Air Positive well nourished and well developed; Negative for obese, cachectic, contractures or unkempt General Appearance ED: well developed and NAD; Negative for unkempt, cachectic, contractures, cyanotic, diaphoretic or pallor Nutritional Appearance: Negative for cachectic or obese HEENT Reports moist mucous membranes; Denies dry mucous membranes Negative for trauma or tenderness Mouth ED: No dry mucous membranes Mouth: No dry mucous membranes Eyes PERRL and EOMs intact bilaterally General Eye ED: Negative for pale conjunctiva, scleral icterus or other Neck no lymphadenopathy, supple and no JVD General: Negative for tenderness Chest Wall inspection of chest normal and palpation of chest normal Resp normal respiratory effort and clear to auscultation bilaterally Effort and Inspection: Negative for retractions or pain with movement Auscultation: Negative for rales, rhonchi or wheezes Cardio regular rate, regular rhythm, S1 normal heart sound, S2 normal heart sound and no murmurs Palpation: Negative for palpable S3 Rate: Negative for bradycardia Rhythm: Negative for abnormal rhythm GI normal to inspection, nondistended, normoactive bowel sounds, non-tender, non-distended and no masses Inspection: Negative for abdominal distention Auscultation: normoactive bowel sounds Palpation: soft; Negative for tender or guarding Back/Spine no CVA tenderness General Back: Negative for CVA tenderness Cervical Spine: Negative for cervical spine tenderness Thoracic Spine / Upper Back: Negative for thoracic spinal tenderness Lumbar Spine / Lower Back: Negative for lumbar spinal tenderness Extremity normal to inspection General Extremety ED: Negative for edema or tenderness General Extremity: Negative for edema Neuro oriented x3 and CN's II-XII intact bilaterally Sensorium / Orientation: alert; Negative for orientation impaired, lethargic or stuporous Motor Exam: strength 5/5 throughout Psych mental status grossly normal Appearance: Negative for unkempt Attitude: No agitated Mood & Affect: Negative for depressed Skin no rashes or lesions noted and no wounds General Skin Exam: Negative for jaundice or pallor Lesions: No lesion noted Rashes: No rashes noted Trauma: Negative for abrasion Wounds: Negative for wounds noted MDM MDM MDM Narrative Medical decision making narrative: 32-year-old female history of IV drug abuse. Has left several hospitals in the last 2 months AMA. She came in tonight to be evaluated she has no complaints and clinically looks well. She has a normal exam and normal vital signs. She is afebrile. We looked up her old records. She has had recent negative blood cultures x2 on March 10 with no growth. She has had a recent CTA showing no PE in late February. And a recent JOSHUA and echocardiogram showing no vegetative lesions. Patient client looks well. She has had a negative work-up. I will have her follow-up with her primary care physician. Discharge Plan Triage Chief Complaint: General Illness ED Provider: Misha Tello Dx/Rx/DC Orders Clinical Impression: Encounter for medical screening examination, History of intravenous drug abuse, History of sepsis Instructions: ED Drug Abuse Prescriptions: No Action albuterol sulfate 2.5 mg /3 mL (0.083 %) solution for nebulization 2.5 mg inhalation Q6H PRN PRN (Reason: sob) Label Comments: Use 3 mL via nebulizer every 6 hours as needed for wheezing/shortness of breath. Rx Instructions: pt states she has been using this at home 6X/day gabapentin 300 mg capsule 600 mg PO BID Label Comments: Take 2 capsules by mouth twice daily for 10 days. fluticasone propion-salmeterol [Advair Diskus] 250-50 mcg/dose Blister With Device 1 inh INHALATION BID albuterol sulfate [ProAir HFA] 90 mcg/actuation Hfa Aerosol Inhaler 2 puff INHALATION Q6H PRN (Reason: sob) Premarin 0.625 mg tablet 0.625 mg PO DAILY Label Comments: Take 1 tablet by mouth once daily. Primary Care Provider: Deisy Montilla NP Referrals: Deisy Montilla NP, [employer] [Primary Care Provider] - As soon as possible Activity Restrictions/Additional Instructions: Follow-up with your primary care physician. Disposition Disposition: Home, Self Care
== END 2022-03-24 20:45 | disposition home or self-care (01) ==
PROVIDERS: Emergency Provider Emergency Medicine; PCP Nurse Practitioner Adult Health; Visit Provider Emergency Medicine
DX: Z76.89 Persons encountering health services in other specified circumstances (principal); F17.210 Nicotine dependence, cigarettes, uncomplicated; F11.90 Opioid use, unspecified, uncomplicated; Z86.19 Personal history of other infectious and parasitic diseases
CPT/HCPCS: 99282